=== PATIENT | male | born 1950 | race Caucasian/White ===

== ENCOUNTER 2017-02-05 09:41 | Inpatient (IN) ==
[2017-02-05] MEDS ORDERED: Albuterol 2.5 MG/3 ML NEBULIZER IH ONE (10:13)
[2017-02-05] MEDS ORDERED: Vancomycin 1,250 MG in D5% in Water 250 ML IVPB ONE (10:13)
--- NOTE | 2017-02-05 10:13 | Anesthesia Evaluation PreOp ---
Date of Encounter: 02/05/17 Time of Encounter: 10:11 - Past History Planned Operation: Left Fem-pop Bypass Graft Cardiac History: [place], CHF (11/30), HTN, Hyperlipidemia, Cardiac Surgery, Cardiac Stent, Pacemaker/ICD (AICD 10/05), Other (AAA 2.1 cm 01/24/16, ischemic cardiomyopathy) Pulmonary History: Smoker, Pack/yr (1/2 ppd) POST PARTUM NURSE History: CVA (2003 mental status changes/ short term memorey loss) Other Medical History: GERD Anesthesia History: No Prior Anesthetic Complications, Past Anesthesia Alcohol Use: none Drug use: none Medications and Allergies Albuterol Sulfate [Albuterol Inhaler] 2 puff IH Q4HR 05/15/15 [History] Aspirin Enteric Coated [Aspirin EC] 81 mg PO DAILY 05/15/15 [History] Atorvastatin Calcium [Lipitor] 80 mg PO DAILY 05/15/15 [History] Benzonatate [Tessalon] 100 mg PO Q6H 05/15/15 [History] Budesonide/Formoterol 160/4.5 [Symbicort 160/4.5] 2 puff IH BIDR 05/15/15 [ History] Cholecalciferol (Vitamin D3) [Vitamin D3] 1,000 unit PO DAILY 05/15/15 [History] Clopidogrel [Plavix] 75 mg PO DAILY 05/15/15 [History] Docusate [Colace] 100 mg PO QAM 05/15/15 [History] Gabapentin [Neurontin] 600 mg PO TID 05/15/15 [History] Multivitamin [Multi-Day Vitamins] 1 tab PO QAM 05/15/15 [History] Omeprazole [PriLOSEC] 20 mg PO BID 05/15/15 [History] Potassium Chloride [Klor-Con Sprinkle] 10 meq PO QAM 05/15/15 [History] Venlafaxine HCl [Effexor Xr] 100 mg PO BID 05/15/15 [History] Tiotropium [Spiriva] 1 cap IH DAILY 11/27/15 [History] Carvedilol [Coreg] 6.25 mg PO BID #60 tablet 11/29/15 [Rx] Losartan Potassium [Cozaar] 50 mg PO DAILY #60 tab 11/29/15 [Rx] Finasteride [Proscar] 5 mg PO DAILY 02/05/17 [History] Furosemide [Lasix] 40 mg PO BID 02/05/17 [History] Spironolactone [Aldactone] 25 mg PO DAILY 02/05/17 [History] Tamsulosin [Flomax] 0.4 mg PO HS 02/05/17 [History] traMADol [Ultram] 50 mg PO TID PRN 02/05/17 [History] traZODone [TraZODone] 50 mg PO HS 02/05/17 [History] 3 Allergy/AdvReac Type Severity Reaction Status Date / Time No Known Allergies Allergy Verified 02/05/17 10:34 - Meds/Allergy Pre-op Review Medications Reviewed: Yes Allergies Reviewed: Yes Beta Blockers on Current Med List: Yes If Beta Blockers taken, Date/Time (Last Dose taken): 02/05/2017 06:30 Anesthesia Results - Labs Laboratory Tests 01/12/17 01/12/17 01/12/17 15:06 15:06 15:06 WBC 12.6 H Hgb 14.1 Hct 43.1 Plt Count 127 L INR 1.1 Sodium 141 Potassium 3.8 Chloride 104 Carbon Dioxide 30 H BUN 16 Creatinine 0.80 Stress 07/25/16 EF-21% No evidence of reversible ischemia - Imaging EKG: image reviewed (ELECTRONIC ATRIAL PACEMAKER ELECTRONIC VENTRICULAR PACEMAKER) Anesthesia Exam O2 Sat Height 1.75 m Height 1.75 m Height 1.75 m Weight 86.183 kg Weight 86.183 kg Weight 86.183 kg O2 Sat by Pulse Oximetry 92 Vital Signs Temp Pulse Resp BP Pulse Ox 98.2 F 60 18 102/64 92 02/05/17 10:01 02/05/17 10:01 02/05/17 10:01 02/05/17 10:01 02/05/17 10:01 Height: 5'9'' Weight: 190# NPO (# of Hours): > 8 hrs Pain Scale: 0 Pain Scale Used: Numeric (1 - 10) - HEENT Pupil (Motor): Pupils equal, EOMI Mallampati: III Teeth: Edentulous Oral Opening: Greater than 3 - POST PARTUM NURSE LOC: Oriented POST PARTUM NURSE Motor: Normal RUE, Normal LUE, Normal RLE, Normal LLE, Normal Face POST PARTUM NURSE Sensory: Normal: RUE, LUE, RLE, LLE, Face - Cardiac Rhythm: Regular Murmur: None JVD: No Carotid Bruit: No - Pulmonary Breath Sounds: bilateral Clear Respiratory Effort: Symmetrical Anesthesia Assess/Plan ASA Score: 4 Modified Jose A Scale for Level of Consciousness: Cooperative, oriented, and tranquil Anesthetic Plan: General Autologous Blood: Yes Monitoring Plan: Standard Monitors, A-Line Recovery Plan: PACU
[2017-02-05] MEDS ORDERED: Albuterol 2.5 MG/3 ML NEBULIZER ONE (10:20)
[2017-02-05] MEDS ORDERED: Heparin 1,000 UNITS/500 mL NS 500 ML ONE ×2 (11:20→11:36)
--- NOTE | 2017-02-05 11:28 | History & Physical Report ---
Date of Encounter: 02/05/17 Time of Encounter: 11:20 24 Hour HP Update - Instructions Instructions: If the History and Physical is less than 30 days old and was completed prior to A.M. admission and or procedure and has NOT been updated on calendar day of procedure please complete this update prior to performing procedure. - Update Patient reports changes in Medical Condition: No Changes in examination, assessment, or condition: No Changes in Medication: No Preop tests/diagnostics Reviewed: Yes Surgery Remains Indicated: Yes Consent for Planned Operative Procedure(s) Verified: Yes - Pre-Operative Checklist Preoperative Checklist Indicated: Yes Prophylactic Antibiotic Ordered: Yes (vancomycin due to MRSA risk) Home Medications Include Beta Mari: Yes Beta Mari Taken Today (Day of Surgery): Yes Beta Mari Taken Yesterday (Day Prior to Surgery): Yes Is VTE Prophylaxis Indicated?: Yes
[2017-02-05] MEDS ORDERED: *HR* Midazolam HCl 5 MG/5 ML VIAL IVP ONE (11:29)
[2017-02-05] MEDS ORDERED: *HR* Propofol 200 MG/20 ML VIAL IVP ONE (11:29)
[2017-02-05] MEDS ORDERED: Lidocaine -MPF 2% 2 ML VIAL ONE (11:30)
[2017-02-05] MEDS ORDERED: *HR* Rocuronium Bromide 50 MG/5 ML VIAL ONE (11:32)
[2017-02-05] MEDS ORDERED: Ketamine *HR* 500 MG/10 ML MDV ONE (11:33)
[2017-02-05] MEDS: Ringers Solution, Lactated 1,000 ML IVC SCH ×4 (12:35→15:58)
[2017-02-05] MEDS ORDERED: *HR* Etomidate 40 MG/20 ML VIAL IVP ONE (12:39)
[2017-02-05] MEDS ORDERED: EPHEDrine 50 MG/ML VIAL ONE (12:43)
[2017-02-05] MEDS ORDERED: Ondansetron 4 MG/2 ML VIAL ONE (13:03)
[2017-02-05] MEDS ORDERED: Dexamethasone 4 MG/ML VIAL ONE (13:03)
[2017-02-05] MEDS ORDERED: *HR* Magnesium Sulfate 1 GM/2 ML VIAL ONE (13:05)
[2017-02-05] MEDS ORDERED: *HR* Phenylephrine 10 MG/ML VIAL ONE ×2 (13:56→15:58)
[2017-02-05] MEDS ORDERED: CEFAZOLIN 2000 MG/100 ML IVPB ONE (13:59)
[2017-02-05] MEDS ORDERED: *HR* HYDROmorphone (PF) 1 MG/ML SYRINGE IVP PRN (14:13)
[2017-02-05] MEDS ORDERED: *HR* Promethazine 25 MG/ML VIAL IVP PRN (14:13)
[2017-02-05] MEDS ORDERED: Ketorolac 30 MG/ML VIAL ONE (14:16)
[2017-02-05] MEDS ORDERED: *HR* Heparin 5,000 UNIT/ML VIAL ONE (15:00)
[2017-02-05] MEDS ORDERED: Neostigmine Methylsulfate 3 MG/3 ML SYRINGE ONE (16:15)
--- NOTE | 2017-02-05 17:32 | Anesthesia Evaluation Post Op ---
Date of Encounter: 02/05/17 Time of Encounter: 17:31 - Vital Signs Vital Signs: Vital Signs/O2 Sat, Most Current Temp Pulse Resp BP Pulse Ox 98 F 60 16 92/49 93 02/05/17 17:21 02/05/17 17:21 02/05/17 17:21 02/05/17 17:21 02/05/17 17:21 - Lungs Lungs: Clear Ascult./Percussion - Airway Airway: Non-obstructed - Cardiovascular Regular Rate - Mental Status Mental Status: Alert & Oriented, Answers Appropriately - Pain Pain Scale: 0 Pain Scale used: Numeric (1 - 10) - Nausea Vomiting Nausea Vomiting: Not Present - Hydration Hydration: Ice chips, Myles catheter - Discharge PostOp Status: Transfer Patient to floor
--- NOTE | 2017-02-05 17:36 | Operative Note ---
Date of procedure: 02/05/17 Pre-op diagnosis: Peripheral vascular disease with rest pain Post-op diagnosis: same Procedure: 1. Left external iliac artery 6 x 37mm and 6 x 27mm stent placement. 2. Left common and deep femoral artery endarterectomy. 3. Left femoral to below knee popliteal artery bypass with 6mm Distaflo mini- cuff graft. Complications: None Anesthesia: GETA Surgeon: Damien Martinez Estimated blood loss (cc): 150 Specimen: left femoral plaque Condition: stable Disposition: PACU Procedure in Detail: Indications: The patient is a 66 year old male with hypertension, hyperlipidemia and tobacco abuse who presented to clinic with severe disabling claudication. He was found to have a left iliac artery stenosis and a left superficial femoral and proximal popliteal artery occlusion. Revascularization was recommended for symptomatic relief. Procedure: The patient was identified in the preoperative area. The risks, benefits, and alternatives of the procedure were discussed. All questions were answered. The patient was taken to the operating room and placed in supine position on the operating room table. After the induction of general endotracheal anesthesia, he was cleaned and draped in normal sterile fashion. An oblique incision was made over the left groin sharply. Hemostasis was obtained with electrocautery. Through a process of blunt, sharp, and electrocautery dissection, the left femoral vessels were dissected circumferentially and surrounded with vessel loops. An incision was made on the left medial calf sharply. Hemostasis was obtained with electrocautery. Through a process of blunt, sharp, and electrocautery dissection, the left below -knee popliteal artery was dissected proximally and distally and surrounded with vessel loops. A graft was tunneled between the popliteal and femoral incisions. The patient received 5000 units of heparin intravenously. Additional heparin was given throughout the case to maintain adequate anticoagulation. A pulse could not be palpated in the left common femoral artery. The left common femoral artery was cannulated with a large bore needle. A wire was advanced through the needle into the aorta and the needle was aexchanged for a 6 [place] sheath. An retrograde angiogram revealed an 80% left external iliac artery stenosis. A 6x37mm stent was advanced over the wire and deployed. The balloon was removed and a retrograde angiogram revealed a 70% left external iliac artery stenosis distal to the stent. A 6 x 27mm stent was then advanced over the wire and deployed. The ballon was removed and a completion angiogram revealed no hemodynamically significant residual stenosis. A strong palpable pulse was present in the left common femoral artery. The sheath and wire were removed and the vessel was occluded by apply tension to the vessel loops. The popliteal vessels were occluded and a longitudinal arteriotomy was made in the popliteal artery. The distal end of the graft was sutured in place with a running 6-0 Prolene, but not tied. Heparinized saline was infused into the lumen. Tension was applied to the femoral vessel loops. An arteriotomy was made in the common femoral artery and the graft was cut to fit the defect. The graft was anastamosed with a running 6-0 Prolene. The vessels were flushed through the graft and heparin was infused into the lumen. The graft was clamped with an atraumatic clamp. Thrombin and gelfoam were used at the proximal anastamosis. The distal arterial anastomosis suture line was completed. Prior to completing the closure, the popliteal vessels were flushed and reoccluded. Heparinized saline was infused into the lumen. The anastamosis was tied and then flow was restored. Polyphasic signals were noted distal to the distal anastomosis as well as at the posterior tibial artery. Wounds were irrigated with antibiotic-containing saline. Thrombin and gelfoam were used to aid in hemostasis. Platelet rich and platelet poor plasma were infused into the wounds. Meticulous hemostasis was obtained throughout the wound with electrocautery. Wounds were reapproximated with layers of 2-0 and 3-0 Vicryl. Skin was reapproximated with 3-0 Monocryl. Sterile dressing was applied. The patient was extubated and taken to recovery room in stable condition.
[2017-02-05] MEDS ORDERED: *HR* Morphine 2 MG/ML SYRINGE IVP PRN (17:44)
[2017-02-05] MEDS ORDERED: *HR* OxyCODONE Immed Rel 5 MG TABLET PO PRN (17:44)
[2017-02-05] MEDS ORDERED: *HR* HYDROcodone/Acet 5/325 mg TABLET PO PRN (17:44)
[2017-02-05] MEDS ORDERED: Acetaminophen 325 MG TABLET PO PRN (17:44)
[2017-02-05] MEDS ORDERED: Benzonatate 100 MG CAPSULE PO PRN (17:44)
[2017-02-05] MEDS ORDERED: Naloxone 0.4 MG/ML INJ IVP PRN (17:44)
[2017-02-05] MEDS ORDERED: 0.9 % Sodium Chloride 1,000 ML IVC SCH (17:45)
[2017-02-05] MEDS ORDERED: *HR* Heparin 5,000 UNIT/ML VIAL SQ SCH (18:00)
[2017-02-05 18:25] LABS: Basophils % 0.3 %; Eosinophils % 0.2 %; Hematocrit 38.6 % (37.5-50.1); Hemoglobin 12.5 g/dL (12.9-16.9); Immature Granulocytes % 0.9 % (0-4); Lymphocytes # 0.6 K/mcL (0.6-4.6); Lymphocytes % 4.6 %; Mean Corpuscular HGB Conc 32.4 g/dL (31.6-35.5); Mean Corpuscular Hemoglobin 32.8 pg (28.0-33.3); Mean Corpuscular Volume 101.3 fL (83.0-100.0); Monocytes # 0.4 K/mcL (0.0-1.3); Monocytes % 3.3 %; Neutrophils # 11.6 K/mcL (1.6-8.9); Platelet Count 103 K/mcL (140-400); Red Blood Count 3.81 M/mcL (4.19-5.50); Red Cell Distribution Width 13.3 % (11.5-14.5); Segmented Neutrophils % 90.7 %
[2017-02-05] MEDS: Gabapentin 400 MG CAPSULE PO SCH ×2 (18:26→21:45)
[2017-02-05] MEDS: *HR* Heparin 5,000 UNIT/ML VIAL SQ SCH (19:12)
[2017-02-05] MEDS: ceFAZolin 2,000 MG in D5% in Water 100 ML IVPB SCH (19:14)
[2017-02-05] MEDS: Budesonide/Formoterol 160/4.5 MDI IH SCH (20:04)
[2017-02-05] MEDS ORDERED: traZODone 50 MG TABLET PO SCH (21:00)
[2017-02-05] MEDS: Furosemide 40 MG TABLET PO SCH (21:44)
[2017-02-06] MEDS ORDERED: Vancomycin 1,250 MG in D5% in Water 250 ML IVPB ONE
[2017-02-06] MEDS: ceFAZolin 2,000 MG in D5% in Water 100 ML IVPB SCH (01:31)
[2017-02-06] MEDS: *HR* Heparin 5,000 UNIT/ML VIAL SQ SCH (06:18)
[2017-02-06 06:53] VITALS: BP 90/51
--- NOTE | 2017-02-06 07:05 | Discharge Summary ---
Date of Encounter: 02/06/17 Time of Encounter: 07:50 - Discharge Diagnosis (1) Atherosclerosis of [place] arteries of extremities with intermittent claudication, bilateral legs Priority: Primary Status: Chronic Comments: The patient is postoperative day #1 after a left iliac stent and left femoral to popliteal artery bypass graft placement. He reports that his left leg feels much better. His incisions are healing. He will be discharged today. He has severe peripheral vascular disease in the right lower extremity. He will follow -up in clinic to be scheduled for right lower extremity revascularization. (2) Essential hypertension Priority: Secondary Status: Acute Comments: He was counseled regarding atherosclerotic risk factor reduction. (3) Diabetes Priority: Secondary Status: Acute Qualifiers: Diabetes mellitus type: type 2 Diabetes mellitus complication status: with neurologic complications Diabetes mellitus complication detail: with polyneuropathy Diabetes mellitus correction insulin use: unspecified extermination inspector insulin use status Qualified Code(s): E11.42 - Type 2 diabetes mellitus with diabetic polyneuropathy (4) History of CHF (congestive heart failure) Priority: Secondary Status: Chronic Comments: The patient has a history of diastolic heart failure. He did not experience any episodes of congestive heart failure during this admission. (5) Tobacco abuse Priority: Secondary Status: Chronic Comments: The patient was counseled regarding smoking cessation. (6) CAD (coronary artery disease) Priority: Secondary Status: Chronic Qualifiers: Coronary Disease-Associated Artery/Lesion type: bypass graft [place] vs. transplanted heart: [place] heart Associated angina: without angina Qualified Code(s): I25.810 - Atherosclerosis of coronary artery bypass graft(s) without angina pectoris (7) COPD (chronic obstructive pulmonary disease) Priority: Secondary Status: Chronic Qualifiers: COPD type: COPD with acute exacerbation Qualified Code(s): J44.1 - Chronic obstructive pulmonary disease with (acute) exacerbation (8) Acute blood loss as cause of postoperative anemia Priority: Secondary Status: Acute Comments: The patient has acute expected postoperative blood loss anemia. He is hemodynamically stable without evidence of ongoing blood loss. - Discharge Medications Prescriptions: Oxycodone HCl/Acetaminophen [Percocet 5-325 mg Tablet] 1 each PO Q6H PRN #25 tablet PRN Reason: POSTOPERATIVE PAIN Home Medications: Albuterol Sulfate [Albuterol Inhaler] 2 puff IH Q4HR 05/15/15 [History] Aspirin Enteric Coated [Aspirin EC] 81 mg PO DAILY 05/15/15 [History] Atorvastatin Calcium [Lipitor] 80 mg PO DAILY 05/15/15 [History] Benzonatate [Tessalon] 100 mg PO Q6H PRN 05/15/15 [History] Budesonide/Formoterol 160/4.5 [Symbicort 160/4.5] 2 puff IH BIDR 05/15/15 [ History] Cholecalciferol (Vitamin D3) [Vitamin D3] 1,000 unit PO DAILY 05/15/15 [History] Clopidogrel [Plavix] 75 mg PO DAILY 05/15/15 [History] Docusate [Colace] 100 mg PO QAM 05/15/15 [History] Gabapentin [Neurontin] 1,200 mg PO TID 05/15/15 [History] Multivitamin [Multi-Day Vitamins] 1 tab PO QAM 05/15/15 [History] Omeprazole [PriLOSEC] 20 mg PO BID 05/15/15 [History] Potassium Chloride [Klor-Con Sprinkle] 20 meq PO QAM 05/15/15 [History] Venlafaxine HCl [Effexor Xr] 100 mg PO BID 05/15/15 [History] Tiotropium [Spiriva] 1 cap IH DAILY 11/27/15 [History] Carvedilol [Coreg] 6.25 mg PO BID #60 tablet 11/29/15 [Rx] Losartan Potassium [Cozaar] 50 mg PO DAILY #60 tab 11/29/15 [Rx] Finasteride [Proscar] 5 mg PO DAILY 02/05/17 [History] Furosemide [Lasix] 40 mg PO BID 02/05/17 [History] Spironolactone [Aldactone] 25 mg PO DAILY 02/05/17 [History] Tamsulosin [Flomax] 0.4 mg PO HS 02/05/17 [History] traMADol [Ultram] 50 mg PO TID PRN 02/05/17 [History] traZODone [TraZODone] 50 mg PO HS 02/05/17 [History] Oxycodone HCl/Acetaminophen [Percocet 5-325 mg Tablet] 1 each PO Q6H PRN #25 tablet 02/06/17 [Rx] Allergies/Adverse Reactions: 3 Allergy/AdvReac Type Severity Reaction Status Date / Time No Known Allergies Allergy Verified 02/05/17 10:34 Date of admission: 02/05/17 17:41 Primary care physician: PCP KATYA Procedure(s) Performed: Left iliac stent and left femoral to popliteal artery bypass. Discharging clinician: Damien Martinez Anticipated date of discharge: 02/06/17 - Patient Status Disposition: Home, Self-Care Condition: Good Functional capacity at discharge: uses cane/walker Overall status at discharge: patient is back to baseline - Discharge Instructions Instructions: Oxycodone/Acetaminophen (By mouth) Follow Up With: Damien Martinez MD [Partnered Physician] - 02/23/17 1:00 pm [facility],PCP [Primary Care Provider] - 02/13/17 1:15 pm Additional Instructions: May remove bandage and shower 02/06/17. Wash wound gently and pat to dry. Apply dry gauze to wounds daily for 7 days. No tub baths or swimming until 03/01/17. Call Dr. Martinez at [phone] with questions or concerns. - Diet and Activity Activity: increase activity as tolerated Diet: advance to your usual diet - Hospital Course Hospital course: Mr. Duran is a 66 year old male with multiple medical comorbid conditions who was admitted on 01/27/17. He underwent left iliac artery sten placement and a left femoral to popliteal artery bypass. He tolerated the procedure well. On postoeprative day #1 he was comfortable and his incisions were healing. He had palpable left pedal pulses. He was discharged on postoperative day #1 in stable condition without complications. Time spent discussing smoking cessation with patient: 3 to 10 minutes - Time Spent with Patient Total time spent providing and/or coordinating discharge services: Exam Vital Signs, Last 4 Hours Temp Pulse Resp BP Pulse Ox 02/06/17 06:51 97.7 F 65 19 90/51 96 02/06/17 04:51 16 95 02/06/17 04:35 60 02/06/17 04:05 60 15 91/54 96 General: Present: Conversant, No Apparent Distress HEENT: Present: Atraumatic Neck: Absent: JVD Cardiac: Present: Reg Rate and Rhythm Lungs: Present: Normal Breath Sounds Neuro: Present: Alert and responsive, No focal deficits noted Abdomen: Present: Soft Vascular: Present: Normal capillary refill, Pulse, normal (left pedal pulses are palpable), Surgical incisions (clean, dry and intact without erythema, drainage or hematoma). Absent: Cyanosis, Edema Skin: Present: No rashes noted on visualized skin - VTE Documentation of Mechanical Device: Intermittent pneumatic compression device
[2017-02-06] MEDS: Budesonide/Formoterol 160/4.5 MDI IH SCH (07:46)
[2017-02-06] MEDS: Gabapentin 400 MG CAPSULE PO SCH (07:57)
[2017-02-06] MEDS: Furosemide 40 MG TABLET PO SCH (07:59)
[2017-02-06] MEDS ORDERED: Aspirin Enteric Coated 81 MG Tablet PO SCH (09:00)
[2017-02-06] MEDS ORDERED: Finasteride 5 MG TABLET PO SCH (09:00)
[2017-02-06] MEDS ORDERED: Spironolactone 25 MG TABLET PO SCH (09:00)
[2017-02-06] MEDS ORDERED: Multivit/Ca/Min/Fe/FA 1 TAB TABLET PO SCH (09:00)
[2017-02-06] MEDS ORDERED: Cholecalciferol (D-3) 1,000 UNIT TABLET PO SCH (09:00)
[2017-02-06] MEDS ORDERED: Tiotropium 18 MCG inhalation IH SCH (10:00)
[2017-02-06] MEDS ORDERED: FLUARIX QUAD 2017-18 36MOS UP/PF 0.5 ML SYRINGE IM ONE (10:03)
== END 2017-02-06 14:28 | disposition home or self-care (01) | DRG 253 ==
LOC: SAMDAY 09:41 → 2NNU 17:41
PROVIDERS: ADMIT Surgery; ATTEND Surgery

== ENCOUNTER 2017-03-12 06:19 | Inpatient (IN) ==
[2017-03-12] MEDS ORDERED: Lidocaine -MPF 1% 2 ML VIAL ID ONE (06:34)
[2017-03-12] MEDS ORDERED: CeFAZolin Pre 2,000 MG/100 ML 2,000 MG/100 ML BAG IVPB ONE (06:34)
[2017-03-12] MEDS ORDERED: Vancomycin 1,500 MG in D5% in Water 250 ML IVPB ONE ×3 (06:34→17:00)
[2017-03-12] MEDS ORDERED: Albuterol 2.5 MG/3 ML NEBULIZER IH ONE (06:37)
[2017-03-12] MEDS ORDERED: Albuterol 2.5 MG/3 ML NEBULIZER ONE (06:39)
[2017-03-12] MEDS: Ringers Solution, Lactated 1,000 ML IVC SCH ×2 (06:43→12:49)
--- NOTE | 2017-03-12 06:48 | Anesthesia Evaluation PreOp ---
Date of Encounter: 03/12/17 Time of Encounter: 06:45 - Past History Planned Operation: right iliac stent and fem-pop BPG Cardiac History: CHF (11/30), HTN, Hyperlipidemia, Cardiac Surgery (CABG), Pacemaker/ICD (paced rhythm), Other (PVD, AAA, ischemic cardiomyopathy) Pulmonary History: Smoker, Pack/yr (55), COPD REFERENCE ASSISTANT History: Denies Any Significant HX Other Medical History: GERD Anesthesia History: No Prior Anesthetic Complications, Past Anesthesia (CABG, left leg BPG) Alcohol Use: none Drug use: none Medications and Allergies 3 Allergy/AdvReac Type Severity Reaction Status Date / Time No Known Allergies Allergy Verified 03/12/17 07:03 - Meds/Allergy Pre-op Review Medications Reviewed: Yes Allergies Reviewed: Yes Beta Blockers on Current Med List: Yes If Beta Blockers taken, Date/Time (Last Dose taken): 429 today Anesthesia Results - Imaging EKG: report reviewed (paced rythm) Additional studies: nuc stress test 08/01: non-diagnostic for ischemia, severely dilated LV, severe LV dysfunction with EF 21%extensive NH damage without reversible ischemia Echo 11/30: shows LV global hypokinesis with EF 21%, severly dilated LA, mild MR not pulm HTN Cath:11/30: severe 3 vessel disease with collaterals. The KATZ graft to mid LAD is patent. Anesthesia Exam Weight: 94kg NPO (# of Hours): 8 - HEENT Pupil (Motor): EOMI Mallampati: II Teeth: Edentulous Oral Opening: Greater than 3 - REFERENCE ASSISTANT LOC: Oriented REFERENCE ASSISTANT Motor: Normal RUE, Normal LUE, Normal RLE, Normal LLE, Normal Face REFERENCE ASSISTANT Sensory: Normal: RUE, LUE, RLE, LLE, Face - Cardiac Rhythm: Regular Murmur: None - Pulmonary Breath Sounds: bilateral Rhonchi Respiratory Effort: Symmetrical Anesthesia Assess/Plan ASA Score: 4 Modified [place] Scale for Level of Consciousness: Cooperative, oriented, and tranquil Anesthetic Plan: General Monitoring Plan: Standard Monitors, A-Line Recovery Plan: PACU (discussed risks of GA, need for a-line and possible blood products. Agrees to proceed)
[2017-03-12] MEDS ORDERED: Bupivacaine-MPF 0.25% 10 ML VIAL ONE (07:26)
[2017-03-12] MEDS ORDERED: Heparin 1,000 UNITS/500 mL NS 1,000 ML ONE (07:27)
[2017-03-12] MEDS ORDERED: Lidocaine 1% 20 ML MDV ONE (07:27)
[2017-03-12] MEDS ORDERED: Heparin 1,000 UNITS/500 mL NS 500 ML ONE (07:30)
[2017-03-12] MEDS ORDERED: *HR* Midazolam HCl 2 MG/2 ML VIAL ONE (07:31)
[2017-03-12] MEDS ORDERED: *HR* Propofol 200 MG/20 ML VIAL IVP ONE (07:31)
[2017-03-12] MEDS ORDERED: *HR* FentaNYL (PF) 100 MCG/2 ML VIAL ONE (07:31)
[2017-03-12] MEDS ORDERED: Lidocaine -MPF 2% 2 ML VIAL ONE (07:32)
--- NOTE | 2017-03-12 07:33 | History & Physical Report ---
Date of Encounter: 03/12/17 Time of Encounter: 07:28 24 Hour HP Update - Instructions Instructions: If the History and Physical is less than 30 days old and was completed prior to A.M. admission and or procedure and has NOT been updated on calendar day of procedure please complete this update prior to performing procedure. - Update Patient reports changes in Medical Condition: No Changes in examination, assessment, or condition: No Changes in Medication: No Preop tests/diagnostics Reviewed: Yes Surgery Remains Indicated: Yes Consent for Planned Operative Procedure(s) Verified: Yes - Pre-Operative Checklist Preoperative Checklist Indicated: Yes Prophylactic Antibiotic Ordered: Yes (Vancomycin due to MRSA risk) Home Medications Include Beta Mari: Yes Beta Mari Taken Today (Day of Surgery): Yes Beta Mari Taken Yesterday (Day Prior to Surgery): Yes Is VTE Prophylaxis Indicated?: Yes
[2017-03-12] MEDS ORDERED: *HR* Rocuronium Bromide 50 MG/5 ML VIAL ONE ×2 (07:35→08:56)
[2017-03-12] MEDS ORDERED: *HR* Succinylcholine 200 MG/10 ML VIAL IVP ONE (07:36)
[2017-03-12] MEDS ORDERED: Lidocaine -MPF 4% 5 ML AMPUL ONE (07:37)
[2017-03-12] MEDS ORDERED: Acetaminophen IV 1,000 MG/100 ML INFUS..BTL ONE (07:42)
[2017-03-12] MEDS ORDERED: EPHEDrine 50 MG/ML VIAL ONE ×2 (08:09→08:50)
[2017-03-12] MEDS ORDERED: *HR* HYDROmorphone (PF) 1 MG/ML SYRINGE IVP PRN (08:24)
[2017-03-12] MEDS ORDERED: Ondansetron 4 MG/2 ML VIAL IVP PRN ×2 (08:24→14:51)
--- NOTE | 2017-03-12 08:27 | Anesthesia Procedures ---
Date of Encounter: 03/12/17 Time of Encounter: 08:00 Procedures: Anesthesia - Arterial Line Consent obtained: written consent Time out performed: Yes Sedation: Versed (mg): 2 Sedation: Fentanyl (mcg): 100 Supplemental Oxygen via Nasal Cannula (L/min): 15 (anesthesia circuit) Local Anesthetic: Lidocaine 1% Amount of Anesthetic used (mls): 1 Size (Gauge): 20 Length (inches): 1 3/4 Technique Used: sterile prep, guide wire technique, direct puncture technique Post-Procedure: line taped into place, dry sterile dressing placed Patient tolerated procedure: well, no complications Complications: none Site: Radial R Vitals: see anesthetic record
[2017-03-12] MEDS ORDERED: Ketamine *HR* 500 MG/10 ML MDV ONE (09:00)
[2017-03-12] MEDS ORDERED: *HR* Heparin 5,000 UNIT/ML VIAL ONE ×2 (09:15→10:10)
[2017-03-12] MEDS ORDERED: *HR* Phenylephrine 10 MG/ML VIAL ONE (10:03)
[2017-03-12] MEDS ORDERED: *HR* HYDROmorphone 2 MG/ML SYRINGE ONE (12:09)
[2017-03-12] MEDS ORDERED: Ondansetron 4 MG/2 ML VIAL ONE (12:09)
[2017-03-12] MEDS ORDERED: Neostigmine Methylsulfate 3 MG/3 ML SYRINGE ONE (12:09)
--- NOTE | 2017-03-12 12:13 | Operative Note ---
Date of procedure: 03/12/17 Pre-op diagnosis: Disabling claudication right lower extremity Post-op diagnosis: same Procedure: Right femoral to below-knee popliteal artery bypass graft with 6 mm PTFE Right iliac angiogram Right external iliac artery stent angioplasty 2 Right common femoral artery endarterectomy Complications: None Anesthesia: GETA Surgeon: Damien Martinez Co-Surgeon: Kingsley Perez Estimated blood loss (cc): 100 Specimen: Right common femoral artery plaque Condition: stable Disposition: PACU Procedure in Detail: History Levi Duran is a 66-year-old white male who has known peripheral vascular occlusive disease. He has severe iliac and superficial femoral artery disease. He is status post a left lower extremity intervention. The patient now comes for right lower extremity reconstruction. Procedure After informed consent was obtained the patient was taken to the operating room. General endotracheal anesthesia was established. The right lower extremity was sterilely prepped and draped. A timeout protocol was observed. A 2 team surgical approach was utilized for this procedure due to the patient's existing comorbid medical problems as well as to facilitate the operative surgery and to assist with complex intraoperative decision making. Simultaneous dissections were then made of the right groin area and the right lobe of the knee popliteal area. Dissection in the groin revealed significant inflammatory changes and a number of stainless steel tere including some in the wall of the vessel. Dissection of the below the knee popliteal artery revealed no previous interventions. There was an unexplained edema of the soft tissue particularly in the perivascular space. A subsartorial tunnel was then created. An angiogram was then performed and heparin was administered intravenously. The antrum was performed through a puncture in the right groin and an angiogram demonstrated high-grade lesion of the right external iliac artery. 2 stents were then placed under fluoroscopic control. Completion angiogram demonstrated wide patency and successful stent angioplasty of the right iliac lesion. Attention was then directed back to the bypass graft. Upon opening the common femoral artery there was a large amount of atherosclerotic disease. This required a formal endarterectomy. This was performed of the common femoral artery and the orifice of the profunda femoris. The right superficial femoral artery is chronically occluded and was not endarterectomized. The bypass graft was then performed. A 6 mm PTFE Distaflo graft had been selected. The anastomoses were then performed simultaneously with 6-0 Prolene sutures sewn in an end to side configuration. After appropriate backbleeding and flushing the graft was opened. Pulsatile flow was achieved into the below the knee popliteal and tibial system. A strong Doppler signal was identified over the posterior tibial artery at the ankle. The incisions were then irrigated with antibiotic containing solution and hemostasis was achieved. The wounds were then closed in layers using absorbable suture. Dry sterile dressings were then applied. The patient was taken from the operating room to the recovery room in stable condition. There were no intraoperative complications.
--- NOTE | 2017-03-12 12:27 | Operative Note ---
Date of procedure: 03/12/17 Pre-op diagnosis: Peripheral vascular disease with disabling claudication Post-op diagnosis: same Procedure: 1. Right common and external iliac artery 6 x 57mm. stent 2. Right external iliac artery 6 x 27mm stent. 3. Right iliofemoral and deep femoral endarterectomy. 4. Right common femoral to below knee popliteal artery bypass with 6mm Distaflo Mini-cuff graft. Complications: None Anesthesia: FELIZ Surgeon: Damien Martinez Counterintelligence Specialist: Kingsley Perez Estimated blood loss (cc): 100 Specimen: Right lower extremity plaque Condition: stable Disposition: PACU Procedure in Detail: Indications: The patient is a 66 year old male with a history of coronary artery disease, hyperlipidemia, hypertension and tobacco abuse. He was noted to have severe disabling caludication. Angiography revealed severe iliac artery and femoral artery stenosis as well as a superficial femoral artery occlusion. Revascularization was recommended for relief of his symptoms. Procedure: The patient was identified in the preoperative area. The risks, benefits, and alternatives of the procedure were discussed. All questions were answered. The patient was taken to the operating room and placed in supine position on the operating room table. After the induction of general endotracheal anesthesia, he was cleaned and draped in normal sterile fashion. An oblique incision was made over the right groin sharply. Hemostasis was obtained with electrocautery. Through a process of blunt, sharp, and electrocautery dissection, the right external iliac and femoral vessels were dissected circumferentially and surrounded with vessel loops. The patient was noted to have had a previous surgery on the right femoral vessels. Significant scar as well as multiple surgical clips were present in the wound which required prolonged dissection. The vessels were noted to be firm and heavily calcified. An incision was made on the right medial calf sharply. Hemostasis was obtained with electrocautery. Through a process of blunt, sharp, and electrocautery dissection, the left below-knee popliteal artery was dissected proximally and distally and surrounded with vessel loops. The vessel was noted to be soft. A graft was tunneled between the popliteal and femoral incisions. The patient received 5000 units of heparin intravenously. Additional heparin was given throughout the case to maintain adequate anticoagulation. Tension was applied to the external iliac and femoral vessel loops. A longitudinal arteriotomy was made in the common femoral artery. The lumen was difficult to identify due to the stenotic and calcified plaque. A wire passed into the external iliac artery and a 6 gabonese sheath was advanced over the wire. Using a guiding catheter, a Glidewire was advanced into the aorta. The catheter was advanced into the aorta and the wire was exchanged for a Magic Torque wire. The catheter was removed and a retrograde angiogram was performed to evaluate the iliac arteries and for sizing. The distal common iliac and external iliac arteries were noted to have multiple stenotic segments measuring up to 85%. A 6 x 57mm stent was advanced into the distal common iliac artery and deployed in the common iliac and external iliac artery. The balloon was removed and a retrograde angiogram revealed additional external iliac artery stenosis. A 6 x 27mm stent was then advanced over the wire and deployed in the external iliac artery. The stent was deployed completely above the iliac stent. The balloon was removed and a completion angiogram revealed resolution of the stenosis in the stented arterial segments. Residual stenosis was palpable distal to the stents. Another stent could not be deployed without crossing the inguinal ligament. The sheath was removed along with the wire. The vessel was flushed and improved flow was noted. A dental freer was then used to perform an endarterectomy on the external iliac artery and common femoral artery. The plaque was excised. Antegrade flow was then noted to be strong and pulsatile. Distally, retrograde flow from the deep femoral artery was noted to be slow. The endarterectomy was then extended into the deep femoral artery. The plaque was excised. Retrograde flow was then noted to be brisk. The vessels were flushed with hepairinzed saline. The popliteal vessels were occluded and a longitudinal arteriotomy was made in the popliteal artery. The distal end of the graft was sutured in place with a running 6-0 Prolene, but not tied. Heparinized saline was infused into the lumen. The proximal graft was then cut to fit the arterial defect and was sutured to the common femoral artery with a running 6-0 Prolene. The vessels were flushed through the graft and heparin was infused into the lumen. The graft was clamped with an atraumatic clamp. Thrombin and gelfoam were used at the proximal anastamosis. The distal arterial anastomosis suture line was completed. Prior to completing the closure, the popliteal vessels were flushed and reoccluded. Heparinized saline was infused into the lumen. The anastamosis was tied and then flow was restored. Polyphasic signals were noted distal to the distal anastomosis as well as at the posterior tibial artery. Wounds were irrigated with antibiotic-containing saline. Thrombin and gelfoam were used to aid in hemostasis. Platelet rich and platelet poor plasma were infused into the wounds. Meticulous hemostasis was obtained throughout the wound with electrocautery. Wounds were reapproximated with layers of 2-0 and 3-0 Vicryl. Skin was reapproximated with 3-0 Monocryl. Sterile dressing was applied. The patient was extubated and taken to recovery room in stable condition.
--- NOTE | 2017-03-12 14:25 | Anesthesia Evaluation Post Op ---
Date of Encounter: 03/12/17 Time of Encounter: 14:25 - Vital Signs Vital Signs: Vital Signs/O2 Sat/Glucose, Most Recent Temp Pulse Resp BP Pulse Ox 98.0 F 60 17 109/54 100 03/12/17 14:15 03/12/17 14:15 03/12/17 14:15 03/12/17 14:15 03/12/17 14:15 - Lungs Lungs: Clear Ascult./Percussion - Airway Airway: Non-obstructed - Cardiovascular Regular Rate - Mental Status Mental Status: Alert & Oriented, Answers Appropriately - Pain Pain Scale: 2 Pain Scale used: Numeric (1 - 10) - Nausea Vomiting Nausea Vomiting: Not Present - Hydration Hydration: Tolerates oral liquids - Discharge PostOp Status: Transfer Patient to floor
[2017-03-12] MEDS ORDERED: *HR* Labetalol 20 MG/4 ML SYRINGE IVP PRN (14:51)
[2017-03-12] MEDS ORDERED: Acetaminophen 325 MG TABLET PO PRN (14:51)
[2017-03-12] MEDS ORDERED: *HR* HYDROcodone/Acet 5/325 mg TABLET PO PRN (14:51)
[2017-03-12] MEDS ORDERED: *HR* Morphine 2 MG/ML SYRINGE IVP PRN (14:51)
[2017-03-12] MEDS ORDERED: Naloxone 0.4 MG/ML INJ IVP PRN (14:51)
[2017-03-12] MEDS: ceFAZolin 2,000 MG in D5% in Water 100 ML IVPB SCH (16:31)
[2017-03-12] MEDS ORDERED: *HR* Heparin 5,000 UNIT/ML VIAL SQ SCH (18:00)
[2017-03-12] MEDS: *HR* Metoprolol 5 MG/5 ML VIAL IVP SCH (18:08)
[2017-03-12] MEDS ORDERED: Vancomycin 0 MG in D5% in Water 250 ML IVPB ONE (19:00)
[2017-03-12] MEDS: Budesonide/Formoterol 160/4.5 MDI IH SCH (19:20)
[2017-03-12] MEDS: *HR* OxyCODONE Immed Rel 5 MG TABLET PO PRN (20:24)
[2017-03-12] MEDS ORDERED: Triamcinolone Acet 0.1% CRM 1 APPL GRAM TP SCH (21:00)
[2017-03-12] MEDS: Furosemide 40 MG TABLET PO SCH (21:26)
[2017-03-12] MEDS: Triamcinolone Acet 0.1% CRM 15 GM TUBE TP SCH (21:27)
[2017-03-13] MEDS: *HR* Metoprolol 5 MG/5 ML VIAL IVP SCH ×2 (00:28→05:34)
[2017-03-13] MEDS: ceFAZolin 2,000 MG in D5% in Water 100 ML IVPB SCH (00:28)
[2017-03-13] MEDS: *HR* OxyCODONE Immed Rel 5 MG TABLET PO PRN ×2 (00:28→05:34)
[2017-03-13] MEDS ORDERED: *HR* Heparin 5,000 UNIT/ML VIAL SQ SCH (06:00)
[2017-03-13 06:07] LABS: Basophils % 0.2 %; Eosinophils # 0.2 K/mcL (0.0-0.6); Eosinophils % 1.9 %; Hematocrit 34.6 % (37.5-50.1); Immature Granulocytes % 0.6 % (0-4); Lymphocytes % 8.3 %; Mean Corpuscular HGB Conc 32.4 g/dL (31.6-35.5); Mean Corpuscular Hemoglobin 33.4 pg (28.0-33.3); Mean Corpuscular Volume 103.3 fL (83.0-100.0); Monocytes # 1.2 K/mcL (0.0-1.3); Monocytes % 9.7 %; Neutrophils # 9.8 K/mcL (1.6-8.9); Platelet Count 120 K/mcL (140-400); Red Blood Count 3.35 M/mcL (4.19-5.50); Red Cell Distribution Width 13.6 % (11.5-14.5); Segmented Neutrophils % 79.3 %
[2017-03-13 06:11] LABS: Hemoglobin 11.2 g/dL (12.9-16.9)
[2017-03-13 06:20] LABS: BUN/Creatinine Ratio 14 (6-26); Blood Urea Nitrogen 10 mg/dL (8-26); Calcium 8.5 mg/dL (8.6-10.8); Carbon Dioxide 30 mEq/L (19-29); Chloride 104 mEq/L (98-109); Glucose 110 mg/dL (70-99); Osmolality,Calculated 288 (280-300); Potassium 3.8 mEq/L (3.5-4.5); Sodium 139 mEq/L (136-145); eGFR For African Americans > 60 (> 60); eGFR For Non-African Americans > 60 (> 60)
--- NOTE | 2017-03-13 06:59 | Discharge Summary ---
Date of Encounter: 03/13/17 Time of Encounter: 08:45 - Discharge Diagnosis (1) Atherosclerosis of [place] arteries of extremities with intermittent claudication, bilateral legs Priority: Primary Status: Chronic Comments: The patient is postoperative day #1 after right iliac artery stents, right femoral endarterectomy and right femoral to popliteal artery bypass. He is hemodynamically stable. His foot is warm with palpable pulses. He is ambulating. He will be discharged today. (2) Diabetes Priority: Secondary Status: Chronic Qualifiers: Diabetes mellitus type: type 2 Diabetes mellitus complication status: with neurologic complications Diabetes mellitus complication detail: with polyneuropathy Diabetes mellitus shelter insulin use: unspecified shelter insulin use status Qualified Code(s): E11.42 - Type 2 diabetes mellitus with diabetic polyneuropathy (3) History of CHF (congestive heart failure) Priority: Secondary Status: Chronic Comments: The patient did not experience any acute symptoms of his chronic diastolic heart failure. (4) CAD (coronary artery disease) Priority: Secondary Status: Chronic Qualifiers: Coronary Disease-Associated Artery/Lesion type: bypass graft [place] vs. transplanted heart: [place] heart Associated angina: without angina Qualified Code(s): I25.810 - Atherosclerosis of coronary artery bypass graft(s) without angina pectoris (5) Acute blood loss as cause of postoperative anemia Priority: Secondary Status: Acute Comments: The patient has acute expected postoperative blood loss anemia. He is hemodynamically stable without evidence of ongoing blood loss. (6) COPD (chronic obstructive pulmonary disease) Priority: Secondary Status: Chronic Qualifiers: COPD type: emphysema Emphysema type: panlobular Qualified Code(s): J43.1 - Panlobular emphysema - Discharge Medications Prescriptions: Oxycodone HCl/Acetaminophen [Percocet 5-325 mg Tablet] 1 each PO Q6H PRN #25 tablet PRN Reason: POSTOPERATIVE PAIN Home Medications: Albuterol Sulfate [Albuterol Inhaler] 2 puff IH Q4HR 05/15/15 [History] Aspirin Enteric Coated [Aspirin EC] 81 mg PO DAILY 05/15/15 [History] Atorvastatin Calcium [Lipitor] 80 mg PO DAILY 05/15/15 [History] Benzonatate [Tessalon] 100 mg PO Q6H PRN 05/15/15 [History] Budesonide/Formoterol 160/4.5 [Symbicort 160/4.5] 2 puff IH BIDR 05/15/15 [ History] Cholecalciferol (Vitamin D3) [Vitamin D3] 1,000 unit PO DAILY 05/15/15 [History] Clopidogrel [Plavix] 75 mg PO DAILY 05/15/15 [History] Docusate [Colace] 100 mg PO QAM 05/15/15 [History] Gabapentin [Neurontin] 1,200 mg PO TID 05/15/15 [History] Multivitamin [Multi-Day Vitamins] 1 tab PO QAM 05/15/15 [History] Omeprazole [PriLOSEC] 20 mg PO BID 05/15/15 [History] Potassium Chloride [Klor-Con Sprinkle] 20 meq PO QAM 05/15/15 [History] Venlafaxine HCl [Effexor Xr] 100 mg PO BID 05/15/15 [History] Tiotropium [Spiriva] 1 cap IH DAILY 11/27/15 [History] Carvedilol [Coreg] 6.25 mg PO BID #60 tablet 11/29/15 [Rx] Losartan Potassium [Cozaar] 50 mg PO DAILY #60 tab 11/29/15 [Rx] Finasteride [Proscar] 5 mg PO DAILY 02/05/17 [History] Furosemide [Lasix] 40 mg PO BID 02/05/17 [History] Spironolactone [Aldactone] 25 mg PO DAILY 02/05/17 [History] Tamsulosin [Flomax] 0.4 mg PO HS 02/05/17 [History] traMADol [Ultram] 50 mg PO TID PRN 02/05/17 [History] traZODone [TraZODone] 50 mg PO HS 02/05/17 [History] Albuterol Sulfate [Albuterol Inhaler] 2 puff IH Q4HR PRN 03/12/17 [History] Aspirin 81 mg PO DAILY 03/12/17 [History] Atorvastatin Calcium 80 mg PO DAILY 03/12/17 [History] Budesonide/Formoterol 160/4.5 [Symbicort 160/4.5] 2 puff IH BIDR 03/12/17 [ History] Carvedilol [Coreg] 6.25 mg PO BIDWM 03/12/17 [History] Clopidogrel [Plavix] 75 mg PO DAILY 03/12/17 [History] Finasteride [Proscar] 5 mg PO DAILY 03/12/17 [History] Furosemide [Lasix] 40 mg PO BID 03/12/17 [History] Oxygen 3 l NS CONT 03/12/17 [History] Potassium Chloride [K-Tab ER] 20 meq PO DAILY 03/12/17 [History] Spironolactone [Aldactone] 25 mg PO DAILY 03/12/17 [History] Tamsulosin [Flomax] 0.4 mg PO HS 03/12/17 [History] Tiotropium [Spiriva] 1 puff IH DAILY 03/12/17 [History] Triamcinolone Acet 0.1% CRM [Kenalog] 1 appl TP BID 03/12/17 [History] Venlafaxine HCl 100 mg PO BID 03/12/17 [History] Oxycodone HCl/Acetaminophen [Percocet 5-325 mg Tablet] 1 each PO Q6H PRN #25 tablet 03/13/17 [Rx] Allergies/Adverse Reactions: 3 Allergy/AdvReac Type Severity Reaction Status Date / Time No Known Allergies Allergy Verified 02/05/17 10:34 Date of admission: 03/12/17 14:35 Primary care physician: PCP [place] Procedure(s) Performed: Right iliac stent, right femoral endarterectomy, right femoral to popliteal artery bypass. Discharging clinician: Damien Martinez Anticipated date of discharge: 03/13/17 - Patient Status Disposition: Home, Self-Care Condition: Good Functional capacity at discharge: independent ambulation Overall status at discharge: patient is back to baseline - Discharge Instructions Instructions: Oxycodone/Acetaminophen (By mouth), Femoropopliteal Bypass (DC), Surgical Site Infections (GEN) Follow Up With: Damien Martinez MD [Partnered Physician] - 04/27/17 8:30 am [place],PCP [Primary Care Provider] - 03/19/17 9:15 am (send d/c info to [place] [phone]) Additional Instructions: May remove bandage and shower 03/14/17. Wash wound gently and pat to dry. Apply dry gauze to wounds daily for 7 days. No tub baths or swimming until 04/06/17. Call Dr. Martinez at [phone] with questions or concerns. - Diet and Activity Activity: increase activity as tolerated Diet: advance to your usual diet - Hospital Course Hospital course: Mr. Duran is a 66 year old male with a history of peripheral vascular disease with disabling claudication. He was admitted on 03/12/17 for revascualrization. He underwent right iliac stents, right femoral endarterectomy and a right femoral to popliteal artery bypass. On postoperative day #1 he was alert and comfortable without complaints. He was able to ambulate and he had palpable pedal pulses. He was discharged in stable condition without complications. Time spent discussing smoking cessation with patient: 3 to 10 minutes - Time Spent with Patient Total time spent providing and/or coordinating discharge services: Exam Vital Signs, Last 4 Hours Temp Pulse Resp BP Pulse Ox 03/13/17 03:50 98.3 F 60 18 107/52 95 General: Present: Conversant, No Apparent Distress HEENT: Present: Pupils equal Neck: Absent: JVD Cardiac: Present: Reg Rate and Rhythm Lungs: Present: Normal Breath Sounds, No Wheeze, Rales, Rhonchi Neuro: Present: Alert and responsive, No focal deficits noted, Motor nerves grossly intact, Sensory nerves grossly intact Abdomen: Present: Soft Vascular: Present: Normal capillary refill, Pulse, normal, Surgical incisions ( incisions clean and dry without drainage, comartments are soft). Absent: Edema Skin: Present: No rashes noted on visualized skin - VTE Documentation of Mechanical Device: Intermittent pneumatic compression device
[2017-03-13 07:59] VITALS: BP 103/56
[2017-03-13] MEDS: Furosemide 40 MG TABLET PO SCH (07:59)
[2017-03-13] MEDS: Triamcinolone Acet 0.1% CRM 15 GM TUBE TP SCH (08:00)
[2017-03-13] MEDS ORDERED: Spironolactone 25 MG TABLET PO SCH (09:00)
[2017-03-13] MEDS ORDERED: Finasteride 5 MG TABLET PO SCH (09:00)
[2017-03-13] MEDS ORDERED: Aspirin 81 MG TAB.CHEW PO SCH (09:00)
[2017-03-13] MEDS ORDERED: Tiotropium 18 MCG inhalation IH SCH (09:00)
[2017-03-13] MEDS: Budesonide/Formoterol 160/4.5 MDI IH SCH (11:13)
== END 2017-03-13 11:18 | disposition home or self-care (01) | DRG 253 ==
LOC: SAMDAY 06:19 → MERGE 06:19 → 2NNU 14:35
PROVIDERS: ADMIT Surgery; ATTEND Surgery

== ENCOUNTER 2017-08-30 19:56 | Inpatient (IN) ==
[2017-08-31] MEDS ORDERED: Acetaminophen 325 MG TABLET PO PRN (02:12)
[2017-08-31] MEDS ORDERED: Naloxone 0.4 MG/ML INJ IVP PRN (02:12)
[2017-08-31] MEDS ORDERED: Ipratropium/Albuterol Neb 3 ML ONE (02:17)
[2017-08-31] MEDS ORDERED: Ipratropium/Albuterol Neb 3 ML IH PRN (02:18)
--- NOTE | 2017-08-31 02:44 | Internal Med History&Physical ---
Date of Encounter: 08/31/17 Time of Encounter: 01:00 Internal Medicine - H&P: HPI Chief complaint: Shortness of breath and chest pain Admitted From: Intrahospital Transfer Plans for Post Hospital Care: Home History of present illness: Mr. Duran is a 67 year old male transferred from [facility] emergency room for shortness of breath and chest pain. Past medical history is significant for systolic CHF with LVEF 20% S/P PPM/AICD, CAD, COPD Patient has intermittent chest pain and shortness of breath and present to [facility] ER for evaluation. Patient was treated there as COPD exacerbation with Levaquin, steroid, and nebulizer. Patient was found elevated troponin to 0.42, which elevated to 0.45 after 2 hours. Patient was considered NSTEMI and was given Lovenox full dose at around 5 pm. Patient also was found elevated d-dimer , CTA was ordered by [facility] ER, however, results shows contrast infiltrate in arm, nondiagnosis for PE. Pt was request to transfer to our hospital for further management. I have discussed the CODE STATUS with this patient. Patient is AAO 3. Patient clearly told me he does not want CPR if cardiac arrest happens, but accept short period of intubation. DNR CCA place. Past Med Surg Social Fam HX - Past Medical History Medical history: GERD, hyperlipidemia, hypertension, CVA, coronary artery disease, CHF, COPD Psychiatric history: no psych history - Past Surgical History Surgical History: coronary bypass (CABG), pacemaker/AICD - Social History Smoking Status: Current every day smoker Packs per day: 1/2 ppd Smokeless Tobacco Status: No Alcohol use: none Drug use: none - Family History Mother History Unknown: Yes Father History Unknown: Yes Hx Family Cardiac Disorders: Yes Internal Medicine - H&P: Meds Albuterol Sulfate [Albuterol Inhaler] 2 puff IH Q4HR 05/15/15 [History] Aspirin Enteric Coated [Aspirin EC] 81 mg PO DAILY 05/15/15 [History] Atorvastatin Calcium [Lipitor] 80 mg PO DAILY 05/15/15 [History] Benzonatate [Tessalon] 100 mg PO Q6H PRN 05/15/15 [History] Budesonide/Formoterol 160/4.5 [Symbicort 160/4.5] 2 puff IH BIDR 05/15/15 [ History] Cholecalciferol (Vitamin D3) [Vitamin D3] 1,000 unit PO DAILY 05/15/15 [History] Clopidogrel [Plavix] 75 mg PO DAILY 05/15/15 [History] Docusate [Colace] 100 mg PO QAM 05/15/15 [History] Gabapentin [Neurontin] 1,200 mg PO TID 05/15/15 [History] Multivitamin [Multi-Day Vitamins] 1 tab PO QAM 05/15/15 [History] Omeprazole [PriLOSEC] 20 mg PO BID 05/15/15 [History] Potassium Chloride [Klor-Con Sprinkle] 20 meq PO QAM 05/15/15 [History] Venlafaxine HCl [Effexor Xr] 100 mg PO BID 05/15/15 [History] Tiotropium [Spiriva] 1 cap IH DAILY 11/27/15 [History] Carvedilol [Coreg] 6.25 mg PO BID #60 tablet 11/29/15 [Rx] Losartan Potassium [Cozaar] 50 mg PO DAILY #60 tab 11/29/15 [Rx] Finasteride [Proscar] 5 mg PO DAILY 02/05/17 [History] Furosemide [Lasix] 40 mg PO BID 02/05/17 [History] Spironolactone [Aldactone] 25 mg PO DAILY 02/05/17 [History] Tamsulosin [Flomax] 0.4 mg PO HS 02/05/17 [History] traMADol [Ultram] 50 mg PO TID PRN 02/05/17 [History] traZODone [TraZODone] 50 mg PO HS 02/05/17 [History] Albuterol Sulfate [Albuterol Inhaler] 2 puff IH Q4HR PRN 03/12/17 [History] Aspirin 81 mg PO DAILY 03/12/17 [History] Atorvastatin Calcium 80 mg PO DAILY 03/12/17 [History] Budesonide/Formoterol 160/4.5 [Symbicort 160/4.5] 2 puff IH BIDR 03/12/17 [ History] Carvedilol [Coreg] 6.25 mg PO BIDWM 03/12/17 [History] Clopidogrel [Plavix] 75 mg PO DAILY 03/12/17 [History] Finasteride [Proscar] 5 mg PO DAILY 03/12/17 [History] Furosemide [Lasix] 40 mg PO BID 03/12/17 [History] Oxygen 3 l NS CONT 03/12/17 [History] Potassium Chloride [K-Tab ER] 20 meq PO DAILY 03/12/17 [History] Spironolactone [Aldactone] 25 mg PO DAILY 03/12/17 [History] Tamsulosin [Flomax] 0.4 mg PO HS 03/12/17 [History] Tiotropium [Spiriva] 1 puff IH DAILY 03/12/17 [History] Triamcinolone Acet 0.1% CRM [Kenalog] 1 appl TP BID 03/12/17 [History] Venlafaxine HCl 100 mg PO BID 03/12/17 [History] Oxycodone HCl/Acetaminophen [Percocet 5-325 mg Tablet] 1 each PO Q6H PRN #25 tablet 03/13/17 [Rx] 3 Allergy/AdvReac Type Severity Reaction Status Date / Time No Known Allergies Allergy Verified 02/05/17 10:34 All Systems PM: A 10-system review of systems was performed and is negative for pertinent findings except as documented above in the HPI. - Constitutional Vitals: Temp Pulse Resp BP Pulse Ox 98.2 F 75 18 99/61 99 08/31/17 00:31 08/31/17 00:31 08/31/17 02:20 08/31/17 00:31 08/31/17 02:20 General appearance: Present: A&O X 3, no acute distress, answers questions appropriately - Head Head exam: Present: atraumatic, normocephalic - Eye Eye exam: Present: PERRL, conjuntiva pink, sclera anicteric Pupils: Present: PERRL - Neck Neck exam general surgery: Present: supple, trachea midline. Absent: lymphadenopathy - Respiratory Respiratory exam: Present: CTAB, wheezes (Diffuse wheezes bilaterally). Absent : accessory muscle use, rales, rhonchi - Cardiovascular Cardiovascular exam: Present: RRR, +S1, +S2. Absent: diastolic murmur, gallop, rubs, systolic murmur - GI/Abdominal GI/Abdominal exam: Present: normal bowel sounds, soft, no peritoneal signs. Absent: distended, tenderness - Extremities Exam Extremities exam: Present: pedal edema (Mild pedal edema bilaterally), warm, radial pulses palpable and symmetrical. Absent: calf tenderness, cyanotic - Neurological Exam Neurological exam: Present: CN II-XII intact, oriented X3, no focal deficits. Absent: pronater drift, facial droop, speech deficit - Skin Skin exam: Present: dry, intact Internal Med - H&P Results - EKG Data -: EKG Interpreted by Myself (Paced rhythm) - Assessment and plan (1) COPD exacerbation Current Visit: Yes Status: Acute Assessment and plan: Patient has a history of COPD. Has increased the shortness of breath. Bilateral diffuse wheezing. Chest x-ray shows negative for pneumonia. Consider COPD exacerbation. - Place patient on antibiotic, steroid, and bronchidilator - Oxygen supportive treatment (2) Elevated d-dimer Current Visit: Yes Status: Acute Assessment and plan: Patient has elevated d-dimer, CTA has been done in [facility], however, because of infiltration of contrast, the result is nondiagnostic. - We will consider VQ scan in a.m. Patient is already in full anticoagulation - Doppler LE b/l (3) CHF exacerbation Current Visit: No Status: Acute Assessment and plan: Patient has increased shortness of breath, history of severe systolic CHF with LVEF 15-20%. Consider CHF exacerbation as well. - Place patient on IV Lasix 40 mg IV twice a day - Strict I and O - Fluid restriction diet after resume diet. - Continue home medication beta shala, ARB, spironolactone - Patient has been placed PPM and AICD Qualifiers: Heart failure type: systolic Qualified Code(s): I50.23 - Acute on chronic systolic (congestive) heart failure (4) Elevated troponin Current Visit: No Status: Resolved Assessment and plan: Consider NSTEMI. Ethel given full dose Lovenox. Will switch to heparin drip started from 5 AM (12 hour after lovenox). Patient is pain-free now - Continuous cardiac monitoring - Track tow more sets of troponin - Cardiology consult. (5) CAD (coronary artery disease) Current Visit: No Status: Chronic Assessment and plan: Continue home medications. Check troponin as mentioned above. Cardiology consult Qualifiers: Coronary Disease-Associated Artery/Lesion type: bypass graft [place] vs. transplanted heart: [place] heart Associated angina: without angina Qualified Code(s): I25.810 - Atherosclerosis of coronary artery bypass graft(s) without angina pectoris (6) DVT prophylaxis Current Visit: Yes Status: Acute Assessment and plan: Patient was given Lovenox - Time Spent With Patient Total time spent is greater than 50% in coordination of care (as documented) at patient's floor/unit and/or counseling patient:
[2017-08-31] MEDS: Furosemide 40 MG/4 ML VIAL IVP SCH ×3 (03:01→16:42)
[2017-08-31 03:26] LABS: Basophils % 0.2 %; Eosinophils # 0.1 K/mcL (0.0-0.6); Eosinophils % 0.6 %; Hematocrit 36.2 % (37.5-50.1); Hemoglobin 12.1 g/dL (12.9-16.9); Immature Granulocytes % 1.2 % (0-4); Immature Platelets 5.9 % (1.1-6.1); Mean Corpuscular HGB Conc 33.4 g/dL (31.6-35.5); Mean Corpuscular Hemoglobin 34.1 pg (28.0-33.3); Mean Platelet Volume 11.7 fL (9.4-12.4); Monocytes # 1.3 K/mcL (0.0-1.3); Monocytes % 9.3 %; Neutrophils # 11.2 K/mcL (1.6-8.9); Nucleated Red Blood Cells 0.4 /100 WBC (0); Platelet Count 133 K/mcL (140-400); Red Blood Count 3.55 M/mcL (4.19-5.50); Red Cell Distribution Width 13.2 % (11.5-14.5); Segmented Neutrophils % 81.7 %
[2017-08-31] MEDS: Ipratropium/Albuterol Neb 3 ML IH SCH ×6 (03:29→23:50)
[2017-08-31] MEDS ORDERED: Melatonin 3 MG TABLET PO ONE (03:35)
[2017-08-31 03:37] LABS: INR 1.3; Prothrombin Time 14.5 Seconds (9.4-12.1)
[2017-08-31 03:39] LABS: Activated Partial Thrombo Time 29.7 Seconds (26.0-36.0)
[2017-08-31 03:44] LABS: BUN/Creatinine Ratio 23 (6-26); Blood Urea Nitrogen 14 mg/dL (8-23); Carbon Dioxide 32 mEq/L (23-29); Chloride 99 mEq/L (98-107); Glucose 92 mg/dL (70-105); Magnesium 1.6 mg/dL (1.6-2.6); Osmolality,Calculated 284 (280-300); Potassium 3.3 mEq/L (3.5-5.1); Sodium 137 mEq/L (136-145); eGFR For African Americans > 60 (> 60); eGFR For Non-African Americans > 60 (> 60)
[2017-08-31] MEDS ORDERED: *HR* Heparin 5,000 UNIT/ML VIAL IVP PRN ×2 (05:00)
[2017-08-31] MEDS ORDERED: *HR* Heparin 5,000 UNIT/ML VIAL IVP ONE (05:00)
[2017-08-31] MEDS: Heparin 25,000 UNIT/500 ML D5W 25,000 UNIT/500 ML BAG IVC SCH (05:05)
[2017-08-31] MEDS: Budesonide/Formoterol 160/4.5 MDI IH SCH ×2 (07:56→19:49)
[2017-08-31] MEDS ORDERED: Spironolactone 25 MG TABLET PO SCH (09:00)
[2017-08-31] MEDS ORDERED: Finasteride 5 MG TABLET PO SCH (09:00)
[2017-08-31] MEDS ORDERED: Aspirin 81 MG TAB.CHEW PO SCH (09:00)
[2017-08-31] MEDS: Aspirin Enteric Coated 81 MG Tablet PO SCH (09:35)
[2017-08-31] MEDS: methylPREDNISolone 125 MG/2 ML VIAL IVP SCH ×2 (09:35→16:42)
--- NOTE | 2017-08-31 09:53 | Internal Med Progress Note ---
<Wilfredo Rock - Last Filed: 08/31/17 17:27> Date of Encounter: 08/31/17 Time of Encounter: 09:50 - Assessment and plan (1) COPD exacerbation Current Visit: Yes Status: Acute Assessment and plan: Patient has a history of COPD. Denies any acute infectious symptoms like fevers , myalgias, productive cough. Has increased the shortness of breath. - Patient does have moderate leukocytosis and patchy left lower lobe infiltrate suggestive of lobar pneumonia - continue Levaquin (day 1) - continue scheduled duo nebs, Symbicort, Solu-Medrol (currently 60 mg Q8 hours IVP) - Oxygen supportive treatment - repeat ABG this a.m. not significantly changed showing no acute respiratory decompensation as compared to ABG done at [facility] - will add BiPAP if needed (2) CHF exacerbation Current Visit: No Status: Acute Assessment and plan: Patient describes to me recent history of symptoms consistent with CHF exacerbation including shortness of air, worsening orthopnea, and worsening pedal edema. Last echo done in 2015 showed LVEF of 20%, left ventricular diastolic dysfunction, and global hypotension easier. and. On initial workup, patient did have elevated troponins which have since downtrended, as well as an elevated BNP. - Place patient on IV Lasix 40 mg IV twice a day - Strict I and O - Fluid restriction diet after resume diet. - Continue home medication beta shala, ARB, spironolactone - Patient has been placed PPM and AICD - Cardiology has been consulted and we are awaiting recommendations. Qualifiers: Heart failure type: systolic Qualified Code(s): I50.23 - Acute on chronic systolic (congestive) heart failure (3) Elevated troponin Current Visit: No Status: Resolved Assessment and plan: Consider NSTEMI. Ethel given full dose Lovenox. Will switch to heparin drip started from 5 AM (12 hour after lovenox). Patient is pain-free now - Continuous cardiac monitoring - troponins decreasing on serial rejects - Cardiology consult. - Currently on heparin GTT, however, this is most likely direct sales representative of acute demand ischemia picture (4) CAD (coronary artery disease) Current Visit: No Status: Chronic Assessment and plan: Continue home medications. Check troponin as mentioned above. Cardiology consult Qualifiers: Coronary Disease-Associated Artery/Lesion type: bypass graft [place] vs. transplanted heart: [place] heart Associated angina: without angina Qualified Code(s): I25.810 - Atherosclerosis of coronary artery bypass graft(s) without angina pectoris (5) Elevated d-dimer Current Visit: Yes Status: Acute Assessment and plan: Patient has elevated d-dimer, CTA has been attempted in [place], however, because of infiltration of contrast, the result is nondiagnostic. - VQ scan unable to be performed to patient's inability to lay fully supine - Doppler LE b/l and echocardiogram pending; may give us stratify risk of PE as well as any heart motion abnormalies consistent with (sub)massive PE (6) DVT prophylaxis Current Visit: Yes Status: Acute Assessment and plan: Currently on heparin infusion; change to subcutaneous heparin once discontinued. (7) Acute and chronic respiratory failure ([id number]) Current Visit: Yes Status: Acute Assessment and plan: Suspect likely multifactorial due to acute COPD exacerbation, pneumonia, and acute CHF exacerbation. All plans as below. Qualifiers: Respiratory failure complication: unspecified whether with hypoxia or hypercapnia Qualified Code(s): J96.20 - Acute and chronic respiratory failure , unspecified whether with hypoxia or hypercapnia - Time Spent With Patient Total time spent is greater than 50% in coordination of care (as documented) at patient's floor/unit and/or counseling patient: - Subjective Interval history: Reviewed recent history with patient. Patient states he just cannot breathe as well as normal, comments on pedal edema, and states is having a harder time sleeping while lying down. Patient denies any fevers, chills, myalgias, worsening cough, production of sputum, chest pain, palpitations, abdominal pain , nausea, vomiting, or dysuria. BPs are within normal limits but borderline this AM. Held Cozaar this a.m. Patient was also tachypneic but will speak in full sentences. Acquiring new ABG. No other acute concerns per RN. - Constitutional Vitals: Temp Pulse Resp BP Pulse Ox 98.2 F 64 16 101/49 95 08/31/17 07:13 08/31/17 07:13 08/31/17 07:53 08/31/17 07:13 08/31/17 07:53 General appearance: Present: A&O X 3, no acute distress, answers questions appropriately Exam: CONSTITUTIONAL: Alert and oriented x2 (unable to name current month -- does state has worsening memory on chronic basis) HEAD: Normocephalic; atraumatic. EYES: PER, no scleral icterus, no drainage, no conjunctival injection NOSE: nasal cannula in place Oropharynx: pink/moist, no tonsillar edema/erythema/exudates RESP: tachypneic but without use of accessory musculature, CTA b/l with no wheezes/rales/rhonchi CARD: Regular rhythm, without murmurs, rubs, or gallop ABD: grossly normal, soft, non-tender, no guarding/distention/rigidity SKIN: normal appearance, no pallor/diaphoresis,mottling,jaundice,cyanosis EXT: Rad pulses 2+ and symmetrical; no lateralizing edema; no other lesions seen PSYCH: appropriate mood/affect Internal Medicine: Result - Labs CBC & Chem 7: 08/31/17 03:08 08/31/17 03:08 Labs: Short CBC 08/31/17 Range/Units 03:08 WBC 13.7 H (4.3-11.1) K/mcL Hgb 12.1 L (12.9-16.9) g/dL Hct 36.2 L (37.5-50.1) % Plt Count 133 L (140-400) K/mcL Neutrophils # 11.2 H (1.6-8.9) K/mcL BMP 08/31/17 03:08 Sodium 137 Potassium 3.3 L Chloride 99 Carbon Dioxide 32 H BUN 14 Creatinine 0.60 L Glucose 92 Calcium 9.0 Cardiac Enzymes 08/31/17 Range/Units 03:08 Troponin I 0.27 H* (< 0.04) ng/mL - ABG Interpretation ABG results: PT/INR, D-dimer PT 14.5 Seconds (9.4-12.1) H 08/31/17 03:08 - Impressions Impressions Chest X-Ray 08/31/17 02:16 IMPRESSION: Patchy left basilar airspace disease likely represents pneumonia. D/ / Felix Palomo MD / Felix Palomo MD Interpreting Provider: Felix Palomo MD Consult Discharge Plan - Plan [facility]errals: [facility] [Primary Care Provider] - <Gael Mcelroy - Last Filed: 08/31/17 18:48> Date of Encounter: 08/31/17 - Assessment and plan (1) CHF exacerbation Current Visit: No Status: Acute Qualifiers: Heart failure type: systolic Qualified Code(s): I50.23 - Acute on chronic systolic (congestive) heart failure (2) Elevated troponin Current Visit: No Status: Resolved (3) CAD (coronary artery disease) Current Visit: No Status: Chronic Qualifiers: Coronary Disease-Associated Artery/Lesion type: bypass graft [place] vs. transplanted heart: [place] heart Associated angina: without angina Qualified Code(s): I25.810 - Atherosclerosis of coronary artery bypass graft(s) without angina pectoris (4) COPD exacerbation Current Visit: Yes Status: Acute (5) Elevated d-dimer Current Visit: Yes Status: Acute (6) DVT prophylaxis Current Visit: Yes Status: Acute (7) Acute and chronic respiratory failure ([id number]) Current Visit: Yes Status: Acute Qualifiers: Respiratory failure complication: unspecified whether with hypoxia or hypercapnia Qualified Code(s): J96.20 - Acute and chronic respiratory failure , unspecified whether with hypoxia or hypercapnia - Time Spent With Patient Total time spent is greater than 50% in coordination of care (as documented) at patient's floor/unit and/or counseling patient: - Constitutional Vitals: Temp Pulse Resp BP Pulse Ox 98.4 F 92 16 148/85 95 08/31/17 16:41 08/31/17 16:41 08/31/17 16:41 08/31/17 16:41 08/31/17 16:41 Internal Medicine: Result - Labs CBC & Chem 7: 08/31/17 03:08 08/31/17 03:08 Labs: Short CBC 08/31/17 Range/Units 03:08 WBC 13.7 H (4.3-11.1) K/mcL Hgb 12.1 L (12.9-16.9) g/dL Hct 36.2 L (37.5-50.1) % Plt Count 133 L (140-400) K/mcL Neutrophils # 11.2 H (1.6-8.9) K/mcL BMP 08/31/17 03:08 Sodium 137 Potassium 3.3 L Chloride 99 Carbon Dioxide 32 H BUN 14 Creatinine 0.60 L Glucose 92 Calcium 9.0 Cardiac Enzymes 08/31/17 08/31/17 Range/Units 03:08 09:05 Troponin I 0.27 H* 0.21 H* (< 0.04) ng/mL - ABG Interpretation ABG results: ABG ABG pH 7.49 pH Units (7.32-7.45) H 08/31/17 10:30 ABG pCO2 45 mmHg (35-45) 08/31/17 10:30 ABG pO2 81 mmHg (85-104) L 08/31/17 10:30 ABG O2 Saturation 97 % (95-98) 08/31/17 10:30 PT/INR, D-dimer PT 14.5 Seconds (9.4-12.1) H 08/31/17 03:08 - Impressions Impressions Chest X-Ray 08/31/17 02:16 IMPRESSION: Patchy left basilar airspace disease likely represents pneumonia. D/ / Felix Palomo MD / Felix Palomo MD Interpreting Provider: Felix Palomo MD - Attending Attestation I examined this patient and my medical decision-making was reviewed with the Resident Physician on 08/31/17. I agree with the documented findings, disposition and treatment plan as described except to the extent set forth below. Mr Duran was admitted earlier today with acute resp failure, COPD and CHF. He remains very dyspneic at rest. No fever Exam alert. Moderate resp distress. Heart distant Agree with plan as above.
[2017-08-31] MEDS ORDERED: Potassium Chloride Elixir 20 MEQ/15 ML UDC PO ONE (10:14)
[2017-08-31 10:34] LABS: ABG Base Excess 9 mEq/L (-2 to 3); ABG HCO3 34 mEq/L (21-27); ABG Oxygen Saturation 97 % (95-98); ABG PCO2 45 mmHg (35-45); ABG PH 7.49 pH Units (7.32-7.45); ABG PO2 81 mmHg (85-104); ABG TCO2 35 mEq/L (20-26)
--- NOTE | 2017-08-31 15:49 | Cardiology Consult Note ---
<Kal Bear - Last Filed: 08/31/17 15:57> Date of Encounter: 08/31/17 Time of Encounter: 15:35 Assessment and Plan (1) Elevated troponin Current Visit: No Status: Resolved Troponin trending downward: 0.45, 0.27, 0.21 Etiology of troponin rise is unclear. Possibly due to demand ischemia. Plan Echo pending, for reevaluation to help guide medical management Continue Heparin drip for minimum of 48 hours Continue antiplatelet agents (2) CHF exacerbation Current Visit: No Status: Acute Agree with primary care teams current plan Qualifiers: Heart failure type: systolic Qualified Code(s): I50.23 - Acute on chronic systolic (congestive) heart failure (3) COPD exacerbation Current Visit: Yes Status: Acute Agree with primary care team on current plan (4) Elevated d-dimer Current Visit: Yes Status: Acute VQ scan/Dopplers pending (5) CAD (coronary artery disease) Current Visit: No Status: Chronic Continue spironolactone, losartan, coreg, atorvastatin, ASA 81mg Qualifiers: Coronary Disease-Associated Artery/Lesion type: bypass graft [place] vs. transplanted heart: [place] heart Associated angina: without angina Qualified Code(s): I25.810 - Atherosclerosis of coronary artery bypass graft(s) without angina pectoris Discussion w patient/family: The assessment and plan as outlined above was discussed with the patient and/or family members who expressed understanding and agreement. All questions were answered. Thank you for involving us in the care of your patient. Please call with any questions. History of Present Illness Consult date: 08/31/17 Requesting physician: Amber Carrington Consult reason: Elevated troponin Chief complaint: JOELLEN History of present illness: Mr. Duran is a 67 year old male with a past medical history of systolic CHF ejection fraction of 20%, CABG, PVD, COPD requiring 3 L when necessary, HLD, HTN , and one half pack per day smoker sent to the emergency department from an outside facility for the complaint of shortness of breath has been worsening over the past week. According to the patient he has been having shortness of breath over the past year, a relative came in from out of town to visit in the squad was called because they were concerned about the patient's breathing. The patient was initially seen at an outside facility in which she was evaluated for a COPD exacerbation, troponin elevation as well as an elevated d- dimer. CT scan was ordered at the outside facility, however the dye infiltrated the patient's family requested that he come to [place]. Quench the patient states that his main concern is his shortness of breath that appears to be constant and has been worsening over the past week and associated with a productive cough. He states he does use his oxygen at home as he needs it and when he sleeps. States the most activity he does is walking from [id number]. Patient denies any fevers, chills, chest pain, palpitations, nausea, vomiting, abdominal pain or diarrhea. Past Med Surg Social Fam HX - Past Medical History Medical history: GERD, hyperlipidemia, hypertension, CVA, coronary artery disease, CHF, COPD Psychiatric history: no psych history - Past Surgical History Surgical History: coronary bypass (CABG), pacemaker/AICD - Social History Smoking Status: Current every day smoker Packs per day: 1/2 ppd Smokeless Tobacco Status: No Alcohol use: none Drug use: none - Family History Mother History Unknown: Yes Father History Unknown: Yes Hx Family Cardiac Disorders: Yes Medications and Allergies Albuterol Sulfate [Albuterol Inhaler] 2 puff IH Q4HR 05/15/15 [History] Atorvastatin Calcium [Lipitor] 80 mg PO DAILY 05/15/15 [History] Cholecalciferol (Vitamin D3) [Vitamin D3] 1,000 unit PO DAILY 05/15/15 [History] Gabapentin [Neurontin] 1,200 mg PO TID 05/15/15 [History] Multivitamin [Multi-Day Vitamins] 1 tab PO QAM 05/15/15 [History] Potassium Chloride [Klor-Con Sprinkle] 20 meq PO QAM 05/15/15 [History] Carvedilol [Coreg] 6.25 mg PO BID #60 tablet 11/29/15 [Rx] Losartan Potassium [Cozaar] 50 mg PO DAILY #60 tab 11/29/15 [Rx] Furosemide [Lasix] 40 mg PO BID 02/05/17 [History] traMADol [Ultram] 50 mg PO TID PRN 02/05/17 [History] traZODone [TraZODone] 50 mg PO HS 02/05/17 [History] Aspirin 81 mg PO DAILY 03/12/17 [History] Budesonide/Formoterol 160/4.5 [Symbicort 160/4.5] 2 puff IH BIDR 03/12/17 [ History] Finasteride [Proscar] 5 mg PO DAILY 03/12/17 [History] Oxygen 3 l NS CONT 03/12/17 [History] Tamsulosin [Flomax] 0.4 mg PO HS 03/12/17 [History] Tiotropium [Spiriva] 1 puff IH DAILY 03/12/17 [History] Albuterol Neb [Proventil Neb] 2.5 mg IH Q4H PRN 08/31/17 [History] Apixaban [Eliquis] 5 mg PO BID 08/31/17 [History] Sildenafil Citrate 100 mg PO AD PRN 08/31/17 [History] 3 Allergy/AdvReac Type Severity Reaction Status Date / Time No Known Allergies Allergy Verified 02/05/17 10:34 All Systems Review: The remainder of the systems were reviewed and are negative - Constitutional Constitutional: no chills, no fever(s) - Cardiovascular Cardiovascular: dyspnea at rest, dyspnea on exertion, leg edema, no chest pain at rest, no chest pain with exertion, no lightheadedness - Respiratory Respiratory: cough, dyspnea - Gastrointestinal Gastrointestinal: no abdominal pain, no coffee ground emesis, no diarrhea, no hematemesis, no hematochezia, no nausea Physical Examination General: Conversant, No Apparent Distress HEENT: Atraumatic, Normocephaly, Mucus Membranes Moist Neck: No JVD, Normal carotid pulses Cardiac: Reg Rate and Rhythm, Normal S1 and S2, No Murmur Lungs: Other (Audible wheezing at bedside. Increased work of breathing. Diffuse wheezes throughout all lung [place]. ) Neuro: Alert and responsive, No focal deficits noted Abdomen: Soft, Non-Tender Skin: No rashes noted on visualized skin Musculoskeletal: No Chest Wall Tenderness Extremities: No Clubbing, No Cyanosis, No Edema, Normal Pulses Results 08/31/17 03:08 08/31/17 03:08 Lab Results 08/31/17 08/31/17 08/31/17 03:08 03:08 03:08 WBC 13.7 H Hgb 12.1 L Hct 36.2 L Plt Count 133 L INR APTT Sodium 137 Potassium 3.3 L Chloride 99 Carbon Dioxide 32 H BUN 14 Creatinine 0.60 L Glucose 92 Calcium 9.0 Magnesium 1.6 Troponin I B-Natriuretic Peptide 781 H 08/31/17 08/31/17 08/31/17 03:08 03:08 09:05 WBC Hgb Hct Plt Count INR 1.3 APTT 29.7 Sodium Potassium Chloride Carbon Dioxide BUN Creatinine Glucose Calcium Magnesium Troponin I 0.27 H* 0.21 H* B-Natriuretic Peptide 08/31/17 11:32 WBC Hgb Hct Plt Count INR APTT 32.5 Sodium Potassium Chloride Carbon Dioxide BUN Creatinine Glucose Calcium Magnesium Troponin I B-Natriuretic Peptide Consult Discharge Plan - Plan [facility]errals: [facility] [Primary Care Provider] - <Martha Tay - Last Filed: 08/31/17 17:11> Date of Encounter: 08/31/17 - Attending Attestation I examined this patient and my medical decision-making was reviewed with the Resident Physician. I agree with the documented findings, disposition and treatment plan. IMPRESSION: Mr. Duran presents at the request of his family who was visiting from out of town and became concerned about patient's breathing and a description of a recent episode of substernal/midepigastric discomfort. Patient at the bedside is alert, oriented to self and year but not to place. Presently denies chest pain or SOB. Has no other complaints. Workup so far demonstrates elevated troponin. Echo is pending. Has known ICM with EF 20% by echo in 2016. PLAN: Trend troponin, heparin drip. Not a good candidate for C - no targets for revascularization by [facility] in 2016. Continue asa, plavix, statin, BB, ARB. Echo pending. Agree with IV diuresis. Assessment and Plan Discussion w patient/family: The assessment and plan as outlined above was discussed with the patient and/or family members who expressed understanding and agreement. All questions were answered. Thank you for involving us in the care of your patient. Please call with any questions. History of Present Illness History of present illness: Mr. Duran is a 67 year old male All Systems Review: The remainder of the systems were reviewed and are negative Physical Examination Vital Signs, Last 4 Hours Temp Pulse Resp BP Pulse Ox 08/31/17 16:41 98.4 F 92 16 148/85 95 08/31/17 16:19 16 95 08/31/17 16:13 98.6 F 72 16 130/75 95 Results 08/31/17 03:08 08/31/17 03:08 Lab Results 08/31/17 08/31/17 08/31/17 03:08 03:08 03:08 WBC 13.7 H Hgb 12.1 L Hct 36.2 L Plt Count 133 L INR APTT Sodium 137 Potassium 3.3 L Chloride 99 Carbon Dioxide 32 H BUN 14 Creatinine 0.60 L Glucose 92 Calcium 9.0 Magnesium 1.6 Troponin I B-Natriuretic Peptide 781 H 08/31/17 08/31/17 08/31/17 03:08 03:08 09:05 WBC Hgb Hct Plt Count INR 1.3 APTT 29.7 Sodium Potassium Chloride Carbon Dioxide BUN Creatinine Glucose Calcium Magnesium Troponin I 0.27 H* 0.21 H* B-Natriuretic Peptide 08/31/17 11:32 WBC Hgb Hct Plt Count INR APTT 32.5 Sodium Potassium Chloride Carbon Dioxide BUN Creatinine Glucose Calcium Magnesium Troponin I B-Natriuretic Peptide
[2017-08-31 16:16] LABS: Adenovirus Not Detected (Not Detect); Bordetella Pertussis Not Detected (Not Detect); Chlamydophila pneumoniae Not Detected (Not Detect); Coronavirus 229E Not Detected (Not Detect); Coronavirus HKU1 Not Detected (Not Detect); Coronavirus NL63 Not Detected (Not Detect); Coronavirus OC43 Not Detected (Not Detect); Human Metapneumovirus Not Detected (Not Detect); Human Rhinovirus/Enterovirus Not Detected (Not Detect); Influenza A Subtype 2009 H1 Not Detected (Not Detect); Influenza A Untypeable Not Detected (Not Detect); Influenza B Not Detected (Not Detect); Mycoplasma pneumoniae Not Detected (Not Detect); Parainfluenza Virus 1 Not Detected (Not Detect); Parainfluenza Virus 2 Not Detected (Not Detect); Parainfluenza Virus 3 Not Detected (Not Detect); Parainfluenza Virus 4 Not Detected (Not Detect); Respiratory Syncytial Virus Not Detected (Not Detect)
[2017-08-31] MEDS: Levofloxacin 750 MG/150 ML 750 MG/150 ML BAG IVPB SCH (17:44)
--- NOTE | 2017-08-31 23:03 | Event Note ---
Date of Encounter: 08/31/17 Time of Encounter: 22:56 Alerted by pts. nurse that pt. is wanting food. Currently NPO. Cardiology notes state that pt. is not good candidate for LHC. NPO orders DC'd and cardiac diet ordered.
[2017-09-01] MEDS: methylPREDNISolone 125 MG/2 ML VIAL IVP SCH ×3 (02:28→16:41)
[2017-09-01] MEDS: Ipratropium/Albuterol Neb 3 ML IH SCH ×6 (03:48→23:11)
[2017-09-01 04:01] LABS: Basophils % 0.1 %; Hematocrit 37.6 % (37.5-50.1); Hemoglobin 12.6 g/dL (12.9-16.9); Immature Granulocytes % 1.1 % (0-4); Lymphocytes # 0.4 K/mcL (0.6-4.6); Lymphocytes % 3.4 %; Mean Corpuscular HGB Conc 33.5 g/dL (31.6-35.5); Mean Corpuscular Hemoglobin 32.7 pg (28.0-33.3); Mean Corpuscular Volume 97.7 fL (83.0-100.0); Mean Platelet Volume 11.6 fL (9.4-12.4); Monocytes # 0.6 K/mcL (0.0-1.3); Monocytes % 4.9 %; Neutrophils # 10.3 K/mcL (1.6-8.9); Platelet Count 163 K/mcL (140-400); Red Blood Count 3.85 M/mcL (4.19-5.50); Red Cell Distribution Width 13.1 % (11.5-14.5); Segmented Neutrophils % 90.5 %
[2017-09-01 04:20] LABS: BUN/Creatinine Ratio 24 (6-26); Blood Urea Nitrogen 15 mg/dL (8-23); Calcium 8.9 mg/dL (8.6-10.3); Carbon Dioxide 32 mEq/L (23-29); Chloride 96 mEq/L (98-107); Glucose 178 mg/dL (70-105); Osmolality,Calculated 291 (280-300); Sodium 138 mEq/L (136-145); eGFR For African Americans > 60 (> 60); eGFR For Non-African Americans > 60 (> 60)
[2017-09-01] MEDS: Heparin 25,000 UNIT/500 ML D5W 25,000 UNIT/500 ML BAG IVC SCH (04:29)
[2017-09-01] MEDS ORDERED: *HR* Metoprolol 5 MG/5 ML VIAL IVP ONE (05:47)
[2017-09-01] MEDS: Budesonide/Formoterol 160/4.5 MDI IH SCH ×2 (07:55→19:38)
[2017-09-01] MEDS: Levofloxacin 750 MG/150 ML 750 MG/150 ML BAG IVPB SCH (09:43)
[2017-09-01] MEDS: Aspirin Enteric Coated 81 MG Tablet PO SCH (09:44)
[2017-09-01] MEDS: Furosemide 40 MG/4 ML VIAL IVP SCH ×2 (09:44→16:41)
[2017-09-01 10:47] LABS: Magnesium 1.6 mg/dL (1.6-2.6)
[2017-09-01] MEDS ORDERED: Albuterol 2.5 MG/3 ML NEBULIZER IH PRN (15:47)
[2017-09-01] MEDS ORDERED: traMADol 50 MG TABLET PO PRN (15:47)
[2017-09-01] MEDS ORDERED: Budesonide/Formoterol 160/4.5 MDI IH SCH (16:00)
[2017-09-01] MEDS ORDERED: Tiotropium 18 MCG inhalation IH SCH (16:00)
--- NOTE | 2017-09-01 16:53 | Cardiology Progress Note ---
<Kal Bear - Last Filed: 09/01/17 16:51> Date of Encounter: 09/01/17 Time of Encounter: 16:51 Assessment and Plan (1) Elevated troponin Current Visit: No Status: Resolved Troponin trending downward: 0.45, 0.27, 0.21 Etiology of troponin rise is unclear. Possibly due to demand ischemia Patient may have history of atrial fibrillation. Currently on Eliquis. Plan Echo is unchanged from prior echo Stop heparin drip at this time Request records from [facility] (2) CHF exacerbation Current Visit: No Status: Acute Agree with primary care teams current plan. Stop IV lasix after 24 hours, switch to PO. Qualifiers: Heart failure type: systolic Qualified Code(s): I50.23 - Acute on chronic systolic (congestive) heart failure (3) COPD exacerbation Current Visit: Yes Status: Acute Agree with primary care team on current plan (4) CAD (coronary artery disease) Current Visit: No Status: Chronic Continue spironolactone, losartan, coreg, atorvastatin, ASA 81mg Qualifiers: Coronary Disease-Associated Artery/Lesion type: bypass graft [place] vs. transplanted heart: [place] heart Associated angina: without angina Qualified Code(s): I25.810 - Atherosclerosis of coronary artery bypass graft(s) without angina pectoris Discussion w patient/family: The assessment and plan as outlined above was discussed with the patient and/or family members who expressed understanding and agreement. All questions were answered. Thank you for involving us in the care of your patient. Please call with any questions. Subjective Principal diagnosis: elevated troponin/CHF Interval history: Mr. Duran is a 67 year old male with a past medical history of systolic CHF ejection fraction of 20%, CABG, PVD, COPD requiring 3 L when necessary, HLD, HTN , and one half pack per day smoker sent to the emergency department from an outside facility for the complaint of shortness of breath has been worsening over the past week. According to the patient he has been having shortness of breath over the past year, a relative came in from out of town to visit in the squad was called because they were concerned about the patient's breathing. The patient was initially seen at an outside facility in which she was evaluated for a COPD exacerbation, troponin elevation as well as an elevated d- dimer. CT scan was ordered at the outside facility, however the dye infiltrated the patient's family requested that he come to [place]. Patient states that his main concern is his shortness of breath that appears to be constant and has been worsening over the past week and associated with a productive cough. He states he does use his oxygen at home as he needs it and when he sleeps. States the most activity he does is walking from [id number]. Patient denies any fevers, chills, chest pain, palpitations, nausea, vomiting, abdominal pain or diarrhea. Objective Vital Signs, Last 4 Hours Temp Pulse Resp BP Pulse Ox 09/01/17 15:39 18 95 09/01/17 15:25 98.5 F 69 18 107/68 96 General: Conversant, No Apparent Distress HEENT: Atraumatic, Normocephaly, Mucus Membranes Moist Neck: No JVD, Normal carotid pulses Cardiac: Reg Rate and Rhythm, Normal S1 and S2, No Murmur Lungs: Other (wheezes in all lung [place], mild rales in bases. Patient breathing is improved from yesterday. ) Neuro: Alert and responsive, No focal deficits noted Abdomen: Soft, Non-Tender Skin: No rashes noted on visualized skin Musculoskeletal: No Chest Wall Tenderness Extremities: No Clubbing, No Cyanosis, No Edema, Normal Pulses Results 09/01/17 03:34 09/01/17 03:34 Lab Results 08/31/17 09/01/17 09/01/17 21:02 03:34 03:34 WBC 11.3 H Hgb 12.6 L Hct 37.6 Plt Count 163 APTT 80.7 H D Sodium 138 Potassium 3.0 L Chloride 96 L Carbon Dioxide 32 H BUN 15 Creatinine 0.63 L Glucose 178 H Calcium 8.9 Magnesium 1.6 09/01/17 03:34 WBC Hgb Hct Plt Count APTT 71.8 H Sodium Potassium Chloride Carbon Dioxide BUN Creatinine Glucose Calcium Magnesium - Imaging and Cardiology Echo: report reviewed Consult Discharge Plan - Plan Referrals: [facility] [Primary Care Provider] - <Martha Tay - Last Filed: 09/01/17 17:38> Date of Encounter: 09/01/17 Assessment and Plan Discussion w patient/family: I examined this patient and my medical decision-making was reviewed with the Resident Physician. I agree with the documented findings, disposition and treatment plan. Echo reviewed - unchanged EF. Troponin elevation may represent demand ischemia in setting of known CAD. Has no targets for revascularization by previous [facility]. Recommend medical management - asa, BB, statin, aldosterone antagonist. Recommend another 24h of IV diuresis. Heparin gtt to be stopped. Patient noted also to be on Eliquis for unclear reasons - per primary team there 's a history of AFIB. However, we have no documentation of AFIB at this institution. Recently seen in February 2017 as outpatient by [facility] - not on Eliquis at that time. Primary team to obtain [place] medical records for clarification. ECG demonstrates a-paced rhythm. All ECGs in [facility] were reviewed - none demonstrate atrial fibrillation. Objective Vital Signs, Last 4 Hours Temp Pulse Resp BP Pulse Ox 09/01/17 15:39 18 95 09/01/17 15:25 98.5 F 69 18 107/68 96 Results 09/01/17 03:34 09/01/17 03:34 Lab Results 08/31/17 09/01/17 09/01/17 21:02 03:34 03:34 WBC 11.3 H Hgb 12.6 L Hct 37.6 Plt Count 163 APTT 80.7 H D Sodium 138 Potassium 3.0 L Chloride 96 L Carbon Dioxide 32 H BUN 15 Creatinine 0.63 L Glucose 178 H Calcium 8.9 Magnesium 1.6 09/01/17 03:34 WBC Hgb Hct Plt Count APTT 71.8 H Sodium Potassium Chloride Carbon Dioxide BUN Creatinine Glucose Calcium Magnesium
[2017-09-01] MEDS: Gabapentin 400 MG CAPSULE PO SCH ×2 (16:55→22:52)
--- NOTE | 2017-09-01 17:02 | Internal Med Progress Note ---
<SujathaChuy - Last Filed: 09/01/17 17:23> Date of Encounter: 09/01/17 Time of Encounter: 14:00 - Assessment and plan (1) COPD exacerbation Current Visit: Yes Status: Acute Assessment and plan: Patient has a history of COPD. Denies any acute infectious symptoms like fevers , myalgias, productive cough. Has increased the shortness of breath. - continue Levaquin (day 2) - continue scheduled duo nebs, Symbicort, Solu-Medrol (currently 60 mg Q8 hours IVP) - Oxygen supportive treatment - BiPAP if needed - Plan to discharge tomorrow (2) CHF exacerbation Current Visit: No Status: Acute Assessment and plan: Last echo done in 2015 showed LVEF of 20%, left ventricular diastolic dysfunction, and global hypotension. On initial workup, patient did have elevated troponins which have since downtrended, as well as an elevated BNP. - Switched IV lasix to PO - Strict I and O - Fluid restriction diet after resume diet. - Continue home medication beta shala, ARB, spironolactone - Patient has been placed PPM and AICD Qualifiers: Heart failure type: systolic Qualified Code(s): I50.23 - Acute on chronic systolic (congestive) heart failure (3) Elevated troponin Current Visit: No Status: Resolved Assessment and plan: Cardiology following. Elevated troponin likely due to demand ischemia. Echo unchanged from previous with LVEF 20-25% and severely dilated left ventricle as well as hypokinetic wall motions. - Continue continuous cardiac monitoring - troponins downtrending 0.45/0.27/0.21 - Heparin discontinued and Holding Eliquis due to possible history of A. Fib but uncertain. [facility] - Spoke with cardiology resident and agree with plan. (4) CAD (coronary artery disease) Current Visit: No Status: Chronic Assessment and plan: Continue home medications. Qualifiers: Coronary Disease-Associated Artery/Lesion type: bypass graft [place] vs. transplanted heart: [place] heart Associated angina: without angina Qualified Code(s): I25.810 - Atherosclerosis of coronary artery bypass graft(s) without angina pectoris (5) Elevated d-dimer Current Visit: Yes Status: Acute Assessment and plan: Patient has elevated d-dimer, CTA has been attempted in [place], however, because of infiltration of contrast, the result is nondiagnostic. - VQ scan unable to be performed to patient's inability to lay fully supine - Doppler LE b/l normal, but great saphenous veins not well visualized - Cardiology will discontinue heparin for now. (6) Acute and chronic respiratory failure ([id number]) Current Visit: Yes Status: Acute Assessment and plan: likely multifactorial due to acute COPD exacerbation, pneumonia, and acute CHF exacerbation. All plans as below. Qualifiers: Respiratory failure complication: unspecified whether with hypoxia or hypercapnia Qualified Code(s): J96.20 - Acute and chronic respiratory failure , unspecified whether with hypoxia or hypercapnia (7) DVT prophylaxis Current Visit: Yes Status: Acute Assessment and plan: SQ heparin - Time Spent With Patient Total time spent is greater than 50% in coordination of care (as documented) at patient's floor/unit and/or counseling patient: - Subjective Interval history: 67-year-old male transferred from [facility] emergency room for shortness of breath and chest pain. Past medical history in includes heart failure with reduced ejection fraction of 20% status post AICD, CAD, COPD. Patient was also found to have elevated troponins. Patient is DNR [facility]. Today, patient is poor historian. Unable to determine his baseline. Patient is unable to follow verbal commands, but able to answer basic questions. He reports that his shortness of breath has improved, denies chest pain, fever, chills, nausea, vomiting, diarrhea, constipation. He denies difficulty voiding. He reports that he is tolerating by mouth intake. - Constitutional Vitals: Temp Pulse Resp BP Pulse Ox 98.5 F 69 18 107/68 95 09/01/17 15:25 09/01/17 15:25 09/01/17 15:39 09/01/17 15:25 09/01/17 15:39 General appearance: Present: A&O X 3, no acute distress, answers questions appropriately - Head Head exam: Present: atraumatic, normocephalic - Eye Eye exam: Present: PERRL, conjuntiva pink, sclera anicteric Pupils: Present: PERRL - Neck Neck exam general surgery: Present: supple, trachea midline. Absent: lymphadenopathy - Respiratory Respiratory exam: Present: CTAB. Absent: accessory muscle use, rales, rhonchi, wheezes - Cardiovascular Cardiovascular exam: Present: RRR, +S1, +S2. Absent: diastolic murmur, gallop, rubs, systolic murmur - GI/Abdominal GI/Abdominal exam: Present: normal bowel sounds, soft, no peritoneal signs. Absent: distended, tenderness - Extremities Exam Extremities exam: Present: warm, radial pulses palpable and symmetrical. Absent : calf tenderness, cyanotic, pedal edema - Neurological Exam Neurological exam: Present: CN II-XII intact, oriented X3, no focal deficits. Absent: pronater drift, facial droop, speech deficit - Skin Skin exam: Present: dry, intact Internal Medicine: Result - Labs CBC & Chem 7: 09/01/17 03:34 09/01/17 03:34 Labs: Short CBC 09/01/17 Range/Units 03:34 WBC 11.3 H (4.3-11.1) K/mcL Hgb 12.6 L (12.9-16.9) g/dL Hct 37.6 (37.5-50.1) % Plt Count 163 (140-400) K/mcL Neutrophils # 10.3 H (1.6-8.9) K/mcL BMP 09/01/17 03:34 Sodium 138 Potassium 3.0 L Chloride 96 L Carbon Dioxide 32 H BUN 15 Creatinine 0.63 L Glucose 178 H Calcium 8.9 - ABG Interpretation ABG results: ABG ABG pH 7.49 pH Units (7.32-7.45) H 08/31/17 10:30 ABG pCO2 45 mmHg (35-45) 08/31/17 10:30 ABG pO2 81 mmHg (85-104) L 08/31/17 10:30 ABG O2 Saturation 97 % (95-98) 08/31/17 10:30 PT/INR, D-dimer PT 14.5 Seconds (9.4-12.1) H 08/31/17 03:08 - Impressions Impressions Echocardiogram 08/31/17 10:18 Impressions: LVEF 20-25%. Severely dilated left ventricle. Severe global left ventricular systolic dysfunction. Indeterminate diastolic function. Atypical septal motion consistent with paced rhythm. Mildly dilated right ventricle. Mild right ventricular hypokinesis. Severely dilated left atrium. Moderate mitral regurgitation. Mild-moderate pulmonary hypertension. Estimated RVSP is 45 mmHg. A device lead was visualized in the right atrium and right ventricle. Left Ventricular Wall Motion: Rest Echo Findings The apex, apical inferior, mid inferior, basal inferior, apical anterior, mid anterior, basal anterior, apical septal, mid inferior septal, basal inferior septal, apical lateral, mid anterior lateral, basal anterior lateral, mid anterior septal, mid inferior lateral, basal anterior septal and basal inferior lateral peterson were hypokinetic. Findings: Study Quality * Technically adequate exam. ECG Findings * Paced rhythm. Left Ventricle * LVEF 20-25%. * Severely dilated left ventricle. * Severe global left ventricular systolic dysfunction. * Indeterminate diastolic function. * Atypical septal motion consistent with paced rhythm. Right Ventricle * Mildly dilated right ventricle. * Mild right ventricular hypokinesis. Left Atrium * Severely dilated left atrium. Right Atrium * Moderately dilated right atrium. Interatrial Septum * Interatrial septum not well evaluated. Aortic Valve * Aortic valve not well visualized. * Mildly calcified aortic valve leaflets. * No aortic regurgitation. * No aortic stenosis. Mitral Valve * Apical displacement of the mitral valve leaflets. * Moderate mitral regurgitation. * No mitral stenosis. Tricuspid Valve * Normal tricuspid valve structure. * Trace tricuspid regurgitation. * Mild-moderate pulmonary hypertension. * Estimated RVSP is 45 mmHg. * Estimated RA pressure is 5 mmHg. Pulmonic Valve * Normal pulmonic valve structure and function. * Trace pulmonic regurgitation. Aorta * Normally sized aortic root. Pericardium * The pericardium appears normal. IVC * Normal IVC dimensions and inspiratory collapse. Device lead * A device lead was visualized in the right atrium and right ventricle. Pulmonary Artery * Normal visualized portions of the main pulmonary artery. Consult Discharge Plan - Plan [facility]errals: [facility] [Primary Care Provider] - <Kelly Solares - Last Filed: 09/01/17 17:51> Date of Encounter: 09/01/17 - Time Spent With Patient Total time spent is greater than 50% in coordination of care (as documented) at patient's floor/unit and/or counseling patient: - Constitutional Vitals: Temp Pulse Resp BP Pulse Ox 98.5 F 69 18 107/68 95 09/01/17 15:25 09/01/17 15:25 09/01/17 15:39 09/01/17 15:25 09/01/17 15:39 Internal Medicine: Result - Labs CBC & Chem 7: 09/01/17 03:34 09/01/17 03:34 Labs: Short CBC 04/17/18 Range/Units 03:34 WBC 11.3 H (4.3-11.1) K/mcL Hgb 12.6 L (12.9-16.9) g/dL Hct 37.6 (37.5-50.1) % Plt Count 163 (140-400) K/mcL Neutrophils # 10.3 H (1.6-8.9) K/mcL BMP 09/01/17 03:34 Sodium 138 Potassium 3.0 L Chloride 96 L Carbon Dioxide 32 H BUN 15 Creatinine 0.63 L Glucose 178 H Calcium 8.9 - ABG Interpretation ABG results: ABG ABG pH 7.49 pH Units (7.32-7.45) H 08/31/17 10:30 ABG pCO2 45 mmHg (35-45) 08/31/17 10:30 ABG pO2 81 mmHg (85-104) L 08/31/17 10:30 ABG O2 Saturation 97 % (95-98) 08/31/17 10:30 PT/INR, D-dimer PT 14.5 Seconds (9.4-12.1) H 08/31/17 03:08 - Impressions Impressions Echocardiogram 08/31/17 10:18 Impressions: LVEF 20-25%. Severely dilated left ventricle. Severe global left ventricular systolic dysfunction. Indeterminate diastolic function. Atypical septal motion consistent with paced rhythm. Mildly dilated right ventricle. Mild right ventricular hypokinesis. Severely dilated left atrium. Moderate mitral regurgitation. Mild-moderate pulmonary hypertension. Estimated RVSP is 45 mmHg. A device lead was visualized in the right atrium and right ventricle. Left Ventricular Wall Motion: Rest Echo Findings The apex, apical inferior, mid inferior, basal inferior, apical anterior, mid anterior, basal anterior, apical septal, mid inferior septal, basal inferior septal, apical lateral, mid anterior lateral, basal anterior lateral, mid anterior septal, mid inferior lateral, basal anterior septal and basal inferior lateral peterson were hypokinetic. Findings: Study Quality * Technically adequate exam. ECG Findings * Paced rhythm. Left Ventricle * LVEF 20-25%. * Severely dilated left ventricle. * Severe global left ventricular systolic dysfunction. * Indeterminate diastolic function. * Atypical septal motion consistent with paced rhythm. Right Ventricle * Mildly dilated right ventricle. * Mild right ventricular hypokinesis. Left Atrium * Severely dilated left atrium. Right Atrium * Moderately dilated right atrium. Interatrial Septum * Interatrial septum not well evaluated. Aortic Valve * Aortic valve not well visualized. * Mildly calcified aortic valve leaflets. * No aortic regurgitation. * No aortic stenosis. Mitral Valve * Apical displacement of the mitral valve leaflets. * Moderate mitral regurgitation. * No mitral stenosis. Tricuspid Valve * Normal tricuspid valve structure. * Trace tricuspid regurgitation. * Mild-moderate pulmonary hypertension. * Estimated RVSP is 45 mmHg. * Estimated RA pressure is 5 mmHg. Pulmonic Valve * Normal pulmonic valve structure and function. * Trace pulmonic regurgitation. Aorta * Normally sized aortic root. Pericardium * The pericardium appears normal. IVC * Normal IVC dimensions and inspiratory collapse. Device lead * A device lead was visualized in the right atrium and right ventricle. Pulmonary Artery * Normal visualized portions of the main pulmonary artery. - Attending Attestation I saw and examined this patient independently, and my medical decision making was reviewed with the resident physician on 09/01/2017. I agree with the documented findings, assessment and treatment plan as described in the progress note.
[2017-09-01] MEDS: Furosemide 40 MG TABLET PO SCH (19:33)
[2017-09-01] MEDS ORDERED: Apixaban 5 MG TABLET PO SCH (21:00)
[2017-09-01] MEDS: traZODone 50 MG TABLET PO SCH (22:52)
[2017-09-01] MEDS: *HR* Heparin 5,000 UNIT/ML VIAL SQ SCH ×2 (22:53)
[2017-09-02] MEDS: methylPREDNISolone 125 MG/2 ML VIAL IVP SCH (01:10)
[2017-09-02] MEDS: Ipratropium/Albuterol Neb 3 ML IH SCH ×6 (03:52→23:44)
[2017-09-02 05:14] LABS: Basophils % 0.1 %; Hematocrit 40.3 % (37.5-50.1); Hemoglobin 13.2 g/dL (12.9-16.9); Immature Granulocytes % 0.6 % (0-4); Lymphocytes # 0.5 K/mcL (0.6-4.6); Lymphocytes % 2.2 %; Mean Corpuscular HGB Conc 32.8 g/dL (31.6-35.5); Mean Corpuscular Hemoglobin 32.7 pg (28.0-33.3); Mean Corpuscular Volume 99.8 fL (83.0-100.0); Mean Platelet Volume 11.5 fL (9.4-12.4); Monocytes # 0.8 K/mcL (0.0-1.3); Monocytes % 3.5 %; Platelet Count 187 K/mcL (140-400); Red Blood Count 4.04 M/mcL (4.19-5.50); Red Cell Distribution Width 13.4 % (11.5-14.5); Segmented Neutrophils % 93.6 %
[2017-09-02 05:20] LABS: INR 1.4; Prothrombin Time 14.7 Seconds (9.4-12.1)
[2017-09-02 05:37] LABS: BUN/Creatinine Ratio 29 (6-26); Blood Urea Nitrogen 24 mg/dL (8-23); Calcium 9.1 mg/dL (8.6-10.3); Carbon Dioxide 35 mEq/L (23-29); Chloride 101 mEq/L (98-107); Glucose 179 mg/dL (70-105); Osmolality,Calculated 299 (280-300); Potassium 3.8 mEq/L (3.5-5.1); Sodium 140 mEq/L (136-145); eGFR For African Americans > 60 (> 60); eGFR For Non-African Americans > 60 (> 60)
[2017-09-02] MEDS: *HR* Heparin 5,000 UNIT/ML VIAL SQ SCH ×2 (05:43→14:38)
[2017-09-02] MEDS: Budesonide/Formoterol 160/4.5 MDI IH SCH ×2 (07:27→19:59)
--- NOTE | 2017-09-02 09:16 | Discharge Summary ---
<Damien Cary - Last Filed: 09/02/17 16:52> Orders not resulted at time of discharge: Pending orders 09/02/17 21:02 PTT [Activated Partial Thrombo Time] [COAG] Timed Date of Encounter: 09/02/17 - Discharge Diagnosis (1) CHF exacerbation Status: Acute Qualifiers: Heart failure type: systolic Qualified Code(s): I50.23 - Acute on chronic systolic (congestive) heart failure (2) Elevated troponin Status: Resolved (3) CAD (coronary artery disease) Status: Chronic Qualifiers: Coronary Disease-Associated Artery/Lesion type: bypass graft [place] vs. transplanted heart: [place] heart Associated angina: without angina Qualified Code(s): I25.810 - Atherosclerosis of coronary artery bypass graft(s) without angina pectoris (4) COPD exacerbation Status: Acute (5) Elevated d-dimer Status: Acute (6) DVT prophylaxis Status: Acute (7) Acute and chronic respiratory failure ([id number]) Status: Acute Qualifiers: Respiratory failure complication: unspecified whether with hypoxia or hypercapnia Qualified Code(s): J96.20 - Acute and chronic respiratory failure , unspecified whether with hypoxia or hypercapnia Hospital course: Mr. Duran is a 67 year old male - Time Spent with Patient Total time spent providing and/or coordinating discharge services: - Discharge Medications Prescriptions: Carvedilol [Coreg] 12.5 mg PO BIDWM #120 tablet levoFLOXacin [Levaquin] 750 mg PO DAILY #5 tablet Losartan [Cozaar] 25 mg PO DAILY #30 tablet Magnesium Oxide [Mag-Ox] 400 mg PO BID #60 tablet predniSONE [PredniSONE] 40 mg PO DAILY #3 tablet Home Medications: Albuterol Sulfate [Albuterol Inhaler] 2 puff IH Q4HR 05/15/15 [History] Atorvastatin Calcium [Lipitor] 80 mg PO DAILY 05/15/15 [History] Cholecalciferol (Vitamin D3) [Vitamin D3] 1,000 unit PO DAILY 05/15/15 [History] Gabapentin [Neurontin] 1,200 mg PO TID 05/15/15 [History] Multivitamin [Multi-Day Vitamins] 1 tab PO QAM 05/15/15 [History] Potassium Chloride [Klor-Con Sprinkle] 20 meq PO QAM 05/15/15 [History] Furosemide [Lasix] 40 mg PO BID 02/05/17 [History] traMADol [Ultram] 50 mg PO TID PRN 02/05/17 [History] traZODone [TraZODone] 50 mg PO HS 02/05/17 [History] Aspirin 81 mg PO DAILY 03/12/17 [History] Budesonide/Formoterol 160/4.5 [Symbicort 160/4.5] 2 puff IH BIDR 03/12/17 [ History] Finasteride [Proscar] 5 mg PO DAILY 03/12/17 [History] Oxygen 3 l NS CONT 03/12/17 [History] Tamsulosin [Flomax] 0.4 mg PO HS 03/12/17 [History] Tiotropium [Spiriva] 1 puff IH DAILY 03/12/17 [History] Albuterol Neb [Proventil Neb] 2.5 mg IH Q4H PRN 08/31/17 [History] Apixaban [Eliquis] 5 mg PO BID 08/31/17 [History] Sildenafil Citrate 100 mg PO AD PRN 08/31/17 [History] Acetaminophen [Tylenol] 650 mg PO Q6HR PRN tablet 09/02/17 [Rx] Carvedilol [Coreg] 12.5 mg PO BIDWM #120 tablet 09/02/17 [Rx] Losartan [Cozaar] 25 mg PO DAILY #30 tablet 09/02/17 [Rx] Magnesium Oxide [Mag-Ox] 400 mg PO BID #60 tablet 09/02/17 [Rx] Omeprazole [PriLOSEC] 20 mg PO DAILY capsule. 09/02/17 [Rx] levoFLOXacin [Levaquin] 750 mg PO DAILY #5 tablet 09/02/17 [Rx] predniSONE [PredniSONE] 40 mg PO DAILY #3 tablet 09/02/17 [Rx] Allergies/Adverse Reactions: 3 Allergy/AdvReac Type Severity Reaction Status Date / Time No Known Allergies Allergy Verified 02/05/17 10:34 Date of admission: 08/31/17 02:12 [facility] care [facility]: [facility] Consults: 08/31/17 02:21 Consult to Cardiology [CONS] Routine Comment: Consulting Provider: Card[facility] Reason for Consult: NSTEMI? Call Completed: Yes 09/01/17 10:08 Consult to Demolition Crane Operator [CONS] Routine Reason for SW Consult: Patient's POA wants patient to discharge to [facility] 09/01/17 17:05 Consult to Occupational Therapy [CONS] Routine Comment: Evaluate, develop and implement POC Reason for Consult: SNF at discharge Does patient have active BEDREST order?: No Is patient medically & hemodynamically stable?: Yes Consult to Physical Therapy [CONS] Routine Comment: Evaluate, develop and implement POC Reason for Consult: SNF at discharge Does patient have active BEDREST order?: No Is patient medically & hemodynamically stable?: Yes - Constitutional Vitals: Temp Pulse Resp BP Pulse Ox 98 F 60 16 103/49 99 09/02/17 15:18 09/02/17 15:18 09/02/17 15:58 09/02/17 15:18 09/02/17 15:58 - Patient Status Disposition: Transfer SNF Condition: Fair - Discharge Instructions Follow Up With: [facility] [Primary Care Provider] - - Attending Attestation I performed an independent interview and examine this patient. I agree with the findings, assessment, and plan of Dr. Hinds, internal medicine resident. My input is reflected in his note. Cardiology input is also noted and appreciated. She continues to improve. Will taper steroids. Continue Levaquin for a total of 5-7 days. He is compensating nicely for his acute on chronic systolic CHF. He is currently on oral Lasix. He continues on Eliquis, old records on order. Do not believe further pursuing of pulmonary embolism would be warranted as it would not change current therapy, anticoagulation. All else as outlined above. 41 minutes spent on discharge and coordination of care. Anticipate discharge today or tomorrow. Patient did have runs of VT, less than 10 beats. Replacing his magnesium and potassium. <Harvey Hinds - Last Filed: 09/02/17 21:37> - NOTES TO OUTPATIENT PROVIDER Notes to Outpatient Provider: Follow up with outpatient driver courier for further management of Eliquis. Orders not resulted at time of discharge: Pending orders 09/02/17 21:02 PTT [Activated Partial Thrombo Time] [COAG] Timed Date of Encounter: 09/02/17 Time of Encounter: 09:15 - Discharge Diagnosis (1) COPD exacerbation Priority: Primary Status: Acute (2) CHF exacerbation Priority: Primary Status: Acute Qualifiers: Heart failure type: systolic Qualified Code(s): I50.23 - Acute on chronic systolic (congestive) heart failure (3) Acute and chronic respiratory failure ([id number]) Priority: Secondary Status: Chronic Qualifiers: Respiratory failure complication: hypoxia Qualified Code(s): J96.21 - Acute and chronic respiratory failure with hypoxia (4) Paroxysmal atrial fibrillation Priority: Secondary Status: Acute (5) CAD (coronary artery disease) Priority: Secondary Status: Chronic Qualifiers: Coronary Disease-Associated Artery/Lesion type: bypass graft [place] vs. transplanted heart: [place] heart Associated angina: without angina Qualified Code(s): I25.810 - Atherosclerosis of coronary artery bypass graft(s) without angina pectoris (6) Elevated troponin Priority: Secondary Status: Resolved (7) Elevated d-dimer Priority: Secondary Status: Acute (8) Hypomagnesemia Priority: Secondary Status: Acute (9) Hypokalemia Priority: Secondary Status: Acute (10) DVT prophylaxis Priority: Secondary Status: Acute Hospital course: Mr. Duran is a 67 year old male with a PMH of systolic CHF (ejection fraction of 20%), atrial fibrillation on Eliquis, HLD, HTN, CABG, PVD, COPD requiring 3 L O2 at night, and one half pack per day smoker sent to [facility] from the [facility] with a complaint of shortness of breath associated with a productive cough that has been worsening over the past week. Work up at the [facility] prior to arrival revealed COPD exacerbation, troponin elevation, as well as an elevated d-dimer. CT scan was ordered at the outside facility, however the dye infiltrated and the patient 's family requested that he come to [facility] instead. Bilateral lower extremity ultrasound revealed normal superficial and deep exam. CXR revealed patchy left basilar airspace disease likely representing pneumonia and patient was started on antibiotics, steroids, and Duonebs. Cardiology was consulted regarding serial troponins (trending downward from 0.45, 0.27, 0.21) and determined the etiology of troponemia was unclear, possibly due to demand ischemia. Patient had frequent short non-sustained runs of SVT on telemetry and cardiology increased patient's Coreg to 12.5mg BID and decreased Losartan to 25mg daily. Echo was unchanged from prior echo and patient continued Lasix 40mg PO BID. His BNP was elevated at 781 and he was compensating nicely for his acute on chronic systolic CHF. Both potassium and magnesium were supplemented. Labs revealed worsening leukocytosis following steroid administration. The patient was instructed to finish a 5 day course of steroids and a total of 7 days of Levaquin. Follow up with outpatient driver courier for further management of Eliquis. Further pursuing of pulmonary embolism would not be warranted as it would not change current therapy, anticoagulation. - Time Spent with Patient Total time spent providing and/or coordinating discharge services: Date of admission: 08/31/17 02:12 Primary care physician: [facility] Consults: 08/31/17 02:21 Consult to Cardiology [CONS] Routine Comment: Consulting Provider: Cardiology [facility] Reason for Consult: NSTEMI? Call Completed: Yes 09/01/17 10:08 Consult to Demolition Crane Operator [CONS] Routine Reason for SW Consult: Patient's POA wants patient to discharge to [facility] 09/01/17 17:05 Consult to Occupational Therapy [CONS] Routine Comment: Evaluate, develop and implement POC Reason for Consult: SNF at discharge Does patient have active BEDREST order?: No Is patient medically & hemodynamically stable?: Yes Consult to Physical Therapy [CONS] Routine Comment: Evaluate, develop and implement POC Reason for Consult: SNF at discharge Does patient have active BEDREST order?: No Is patient medically & hemodynamically stable?: Yes Discharging clinician: Harvey Hinds Anticipated date of discharge: 09/03/17 - Constitutional Vitals: Temp Pulse Resp BP Pulse Ox 97.8 F 89 16 101/65 98 09/02/17 07:02 09/02/17 07:02 09/02/17 07:27 09/02/17 07:02 09/02/17 07:27 General appearance: Present: A&O X 3, no acute distress, answers questions appropriately - Head Head exam: Present: atraumatic, normocephalic - Eye Eye exam: Present: PERRL, conjuntiva pink, sclera anicteric Pupils: Present: PERRL - ENT ENT exam: Present: mucous membranes moist, normal oropharynx - Neck Neck exam general surgery: Present: supple, trachea midline. Absent: lymphadenopathy - Respiratory Respiratory exam: Present: CTAB. Absent: accessory muscle use, rales, rhonchi, wheezes - Cardiovascular Cardiovascular exam: Present: RRR, +S1, +S2. Absent: diastolic murmur, gallop, rubs, systolic murmur - GI/Abdominal GI/Abdominal exam: Present: normal bowel sounds, soft, no peritoneal signs. Absent: distended, tenderness - Extremities Exam Extremities exam: Present: warm, radial pulses palpable and symmetrical. Absent : calf tenderness, cyanotic, pedal edema - Back Exam Back exam: Present: normal inspection. Absent: tenderness - Neurological Exam Neurological exam: Present: CN II-XII intact, oriented X3, no focal deficits. Absent: pronater drift, facial droop, speech deficit - Psychiatric Psychiatric exam: Present: normal affect, normal mood - Skin Skin exam: Present: dry, intact, warm - Patient Status Functional capacity at discharge: independent ambulation Overall status at discharge: patient is progressing back to baseline - Diet and Activity Activity: as per physical therapy Diet: low fat, low cholesterol, low salt diet
--- NOTE | 2017-09-02 10:06 | Cardiology Progress Note ---
<Kal Bear - Last Filed: 09/02/17 15:53> Date of Encounter: 09/02/17 Time of Encounter: 09:55 Assessment and Plan (1) Elevated troponin Current Visit: No Status: Resolved Troponin trending downward: 0.45, 0.27, 0.21 Etiology of troponin rise is unclear. Possibly due to demand ischemia Patient may have history of atrial fibrillation. Currently on Eliquis Per primary team, patient has hx of atrial fibrillation. [facility] Echo is unchanged from prior echo Patient did have frequent short runs of SVT overnight on tele Plan Increased patient coreg to 12.5mg BID and decreased losartan to 50mg [facility] records pending Follow up with outpatient veterinary anatomist for further management of eliquis (2) CHF exacerbation Current Visit: No Status: Acute Agree with primary care teams current plan. Continue on Lasix 40mg PO BID. Qualifiers: Heart failure type: systolic Qualified Code(s): I50.23 - Acute on chronic systolic (congestive) heart failure (3) COPD exacerbation Current Visit: Yes Status: Acute Agree with primary care team on current plan (4) CAD (coronary artery disease) Current Visit: No Status: Chronic Continue spironolactone, losartan, coreg, atorvastatin, ASA 81mg Qualifiers: Coronary Disease-Associated Artery/Lesion type: bypass graft [place] vs. transplanted heart: [place] heart Associated angina: without angina Qualified Code(s): I25.810 - Atherosclerosis of coronary artery bypass graft(s) without angina pectoris Discussion w patient/family: The assessment and plan as outlined above was discussed with the patient and/or family members who expressed understanding and agreement. All questions were answered. Thank you for involving us in the care of your patient. Please call with any questions. Subjective Principal diagnosis: elevated troponin/CHF Interval history: Mr. Duran is a 67 year old male with a past medical history of systolic CHF ejection fraction of 20%, CABG, PVD, COPD requiring 3 L when necessary, HLD, HTN , and one half pack per day smoker sent to the emergency department from an outside facility for the complaint of shortness of breath has been worsening over the past week. According to the patient he has been having shortness of breath over the past year, a relative came in from out of town to visit in the squad was called because they were concerned about the patient's breathing. The patient was initially seen at an outside facility in which she was evaluated for a COPD exacerbation, troponin elevation as well as an elevated d- dimer. CT scan was ordered at the outside facility, however the dye infiltrated the patient's family requested that he come to [place]. Patient states that his main concern is his shortness of breath that appears to be constant and has been worsening over the past week and associated with a productive cough. He states he does use his oxygen at home as he needs it and when he sleeps. States the most activity he does is walking from [id number]. Patient is improving towards baseline. States he feels his breathing is improved. Denies CP, palpitations, N/V, cough, abdominal pain or LE swelling. Objective Vital Signs, Last 4 Hours Temp Pulse Resp BP Pulse Ox 09/02/17 07:27 16 98 09/02/17 07:02 97.8 F 89 16 101/65 94 General: Conversant, No Apparent Distress HEENT: Atraumatic, Normocephaly, Mucus Membranes Moist Neck: No JVD, Normal carotid pulses Cardiac: Reg Rate and Rhythm, Normal S1 and S2, No Murmur Lungs: Normal Breath Sounds, No Wheeze, Rales, Rhonchi Neuro: Alert and responsive, No focal deficits noted Abdomen: Soft, Non-Tender Skin: No rashes noted on visualized skin Musculoskeletal: No Chest Wall Tenderness Extremities: No Clubbing, No Cyanosis, No Edema, Normal Pulses Results 09/02/17 04:58 09/02/17 04:58 Lab Results 09/01/17 09/02/17 09/02/17 03:34 04:58 04:58 WBC 21.4 H D Hgb 13.2 Hct 40.3 Plt Count 187 INR Sodium 138 140 Potassium 3.0 L 3.8 Chloride 96 L 101 Carbon Dioxide 32 H 35 H BUN 15 24 H Creatinine 0.63 L 0.82 Glucose 178 H 179 H Calcium 8.9 9.1 Magnesium 1.6 09/02/17 04:58 WBC Hgb Hct Plt Count INR 1.4 Sodium Potassium Chloride Carbon Dioxide BUN Creatinine Glucose Calcium Magnesium Consult Discharge Plan - Plan [facility]errals: [facility] [Primary Care Provider] - <Martha Tay - Last Filed: 09/02/17 16:40> Date of Encounter: 09/02/17 Assessment and Plan Discussion w patient/family: I examined this patient and my medical decision-making was reviewed with the Resident Physician. I agree with the documented findings, disposition and treatment plan. Mr. Duran is feeling much better. Primary team changed IV lasix to PO and anticipate discharge tomorrow. We have uptitrated his BB due to frequent short runs of NSVT on telemetry. Echo unchanged from prior. History of BiV ICD placement. No targets for revascularization by previous [facility]. Continue asa, BB , statin, aldosterone antagonist. Eliquis on his medication list for unclear reasons - per primary it is for AFIB. Patient does not know. Records requested but not yet obtained. Objective Vital Signs, Last 4 Hours Temp Pulse Resp BP Pulse Ox 09/02/17 15:58 16 99 09/02/17 15:18 98 F 60 16 103/49 100 Results 09/02/17 04:58 09/02/17 04:58 Lab Results 09/02/17 09/02/17 09/02/17 04:58 04:58 04:58 WBC 21.4 H D Hgb 13.2 Hct 40.3 Plt Count 187 INR 1.4 Sodium 140 Potassium 3.8 Chloride 101 Carbon Dioxide 35 H BUN 24 H Creatinine 0.82 Glucose 179 H Calcium 9.1
--- NOTE | 2017-09-02 10:11 | Physician Discharge Referral ---
ExtendedCare Referral Info Transfer To: SNF Provider in Charge: Damien Cary Provider in Charge after Transfer: PCP Institutional Level of Care: Skilled - Diagnosis (1) Acute and chronic respiratory failure ([id number]) Priority: Primary Status: Acute (2) CHF exacerbation Priority: Primary Status: Acute (3) COPD exacerbation Priority: Primary Status: Acute (4) Elevated troponin Priority: Secondary Status: Resolved (5) CAD (coronary artery disease) Priority: Secondary Status: Chronic (6) Elevated d-dimer Priority: Secondary Status: Acute (7) DVT prophylaxis Priority: Secondary Status: Acute Prognosis: Good Aware of Diagnosis: Patient Aware of Prognosis: Patient - Transfer Medications Home Medications: Albuterol Sulfate [Albuterol Inhaler] 2 puff IH Q4HR 05/15/15 [History] Atorvastatin Calcium [Lipitor] 80 mg PO DAILY 05/15/15 [History] Cholecalciferol (Vitamin D3) [Vitamin D3] 1,000 unit PO DAILY 05/15/15 [History] Gabapentin [Neurontin] 1,200 mg PO TID 05/15/15 [History] Multivitamin [Multi-Day Vitamins] 1 tab PO QAM 05/15/15 [History] Potassium Chloride [Klor-Con Sprinkle] 20 meq PO QAM 05/15/15 [History] Carvedilol [Coreg] 6.25 mg PO BID #60 tablet 11/29/15 [Rx] Losartan Potassium [Cozaar] 50 mg PO DAILY #60 tab 11/29/15 [Rx] Furosemide [Lasix] 40 mg PO BID 02/05/17 [History] traMADol [Ultram] 50 mg PO TID PRN 02/05/17 [History] traZODone [TraZODone] 50 mg PO HS 02/05/17 [History] Aspirin 81 mg PO DAILY 03/12/17 [History] Budesonide/Formoterol 160/4.5 [Symbicort 160/4.5] 2 puff IH BIDR 03/12/17 [ History] Finasteride [Proscar] 5 mg PO DAILY 03/12/17 [History] Oxygen 3 l NS CONT 03/12/17 [History] Tamsulosin [Flomax] 0.4 mg PO HS 03/12/17 [History] Tiotropium [Spiriva] 1 puff IH DAILY 03/12/17 [History] Albuterol Neb [Proventil Neb] 2.5 mg IH Q4H PRN 08/31/17 [History] Apixaban [Eliquis] 5 mg PO BID 08/31/17 [History] Sildenafil Citrate 100 mg PO AD PRN 08/31/17 [History] Allergies/Adverse Reactions: 3 Allergy/AdvReac Type Severity Reaction Status Date / Time No Known Allergies Allergy Verified 02/05/17 10:34 - Respiratory Orders Oxygen / L per min (3) Smoking Cessation: Smoking cessation has been advised. For more information, call the [place] [employer] Quit Line at 3-344-EFUM-NOW. - Advance Directives Code Status: DNR-Comfort Care - Mobility Orders Ambulate - Rehabiliation Orders Rehab Potential: Good Rehab Orders: Evaluation for Physical Therapy, Evaluation for Occupational Therapy - Diet Orders Cardiac CERTIFICATION: I certify that the transfer of the above named patient to an Extended Care Facility is necessary for the continuing treatment of the diagnosis listed. The above information is true and accurate reflection of patient's current condition. Confidential - Redisclosure prohibited without a patient's written consent.
[2017-09-02] MEDS: Furosemide 40 MG TABLET PO SCH ×2 (10:32→17:03)
[2017-09-02] MEDS: Aspirin Enteric Coated 81 MG Tablet PO SCH (10:32)
[2017-09-02] MEDS: Gabapentin 400 MG CAPSULE PO SCH ×3 (10:33→21:38)
[2017-09-02] MEDS: Levofloxacin 750 MG/150 ML 750 MG/150 ML BAG IVPB SCH (10:39)
[2017-09-02] MEDS: Apixaban 5 MG TABLET PO SCH (21:39)
[2017-09-02] MEDS: Magnesium Oxide 400 MG TABLET PO SCH (21:39)
[2017-09-02] MEDS: traZODone 50 MG TABLET PO SCH (21:40)
[2017-09-03] MEDS: Ipratropium/Albuterol Neb 3 ML IH SCH ×3 (03:47→11:06)
[2017-09-03 05:36] LABS: Basophils % 0.1 %; Eosinophils % 0.1 %; Hematocrit 39.6 % (37.5-50.1); Hemoglobin 12.8 g/dL (12.9-16.9); Immature Granulocytes % 0.7 % (0-4); Lymphocytes # 1.5 K/mcL (0.6-4.6); Lymphocytes % 8.4 %; Mean Corpuscular HGB Conc 32.3 g/dL (31.6-35.5); Mean Corpuscular Hemoglobin 33.7 pg (28.0-33.3); Mean Corpuscular Volume 104.2 fL (83.0-100.0); Mean Platelet Volume 11.5 fL (9.4-12.4); Monocytes # 1.2 K/mcL (0.0-1.3); Monocytes % 6.6 %; Neutrophils # 14.7 K/mcL (1.6-8.9); Platelet Count 171 K/mcL (140-400); Red Cell Distribution Width 13.6 % (11.5-14.5); Segmented Neutrophils % 84.1 %
[2017-09-03 05:48] LABS: BUN/Creatinine Ratio 26 (6-26); Blood Urea Nitrogen 21 mg/dL (8-23); Calcium 8.9 mg/dL (8.6-10.3); Carbon Dioxide 37 mEq/L (23-29); Chloride 101 mEq/L (98-107); Glucose 109 mg/dL (70-105); Magnesium 2.1 mg/dL (1.6-2.6); Osmolality,Calculated 296 (280-300); Potassium 3.8 mEq/L (3.5-5.1); Sodium 141 mEq/L (136-145); eGFR For African Americans > 60 (> 60); eGFR For Non-African Americans > 60 (> 60)
[2017-09-03] MEDS: Budesonide/Formoterol 160/4.5 MDI IH SCH (07:41)
[2017-09-03 07:43] VITALS: BP 112/73
--- NOTE | 2017-09-03 07:52 | Internal Med Progress Note ---
<Damien Cary - Last Filed: 09/03/17 14:12> Date of Encounter: 09/03/17 - Assessment and plan (1) CHF exacerbation Current Visit: No Status: Acute Qualifiers: Heart failure type: systolic Qualified Code(s): I50.23 - Acute on chronic systolic (congestive) heart failure (2) Elevated troponin Current Visit: No Status: Resolved (3) CAD (coronary artery disease) Current Visit: No Status: Chronic Qualifiers: Coronary Disease-Associated Artery/Lesion type: bypass graft [place] vs. transplanted heart: [place] heart Associated angina: without angina Qualified Code(s): I25.810 - Atherosclerosis of coronary artery bypass graft(s) without angina pectoris (4) COPD exacerbation Current Visit: Yes Status: Acute (5) Elevated d-dimer Current Visit: Yes Status: Acute (6) DVT prophylaxis Current Visit: Yes Status: Acute (7) Acute and chronic respiratory failure ([id number]) Current Visit: Yes Status: Chronic Qualifiers: Respiratory failure complication: hypoxia Qualified Code(s): J96.21 - Acute and chronic respiratory failure with hypoxia (8) Paroxysmal atrial fibrillation Current Visit: Yes Status: Acute (9) Hypomagnesemia Current Visit: Yes Status: Acute (10) Hypokalemia Current Visit: Yes Status: Acute - Time Spent With Patient Total time spent is greater than 50% in coordination of care (as documented) at patient's floor/unit and/or counseling patient: - Constitutional Vitals: Temp Pulse Resp BP Pulse Ox 97.8 F 70 18 112/73 100 09/03/17 07:42 09/03/17 07:42 09/03/17 11:07 09/03/17 07:42 09/03/17 11:07 Internal Medicine: Result - Labs CBC & Chem 7: 09/03/17 04:00 09/03/17 04:00 Labs: Short CBC 09/03/17 Range/Units 04:00 WBC 17.5 H (4.3-11.1) K/mcL Hgb 12.8 L (12.9-16.9) g/dL Hct 39.6 (37.5-50.1) % Plt Count 171 (140-400) K/mcL Neutrophils # 14.7 H (1.6-8.9) K/mcL BMP 09/03/17 04:00 Sodium 141 Potassium 3.8 Chloride 101 Carbon Dioxide 37 H BUN 21 Creatinine 0.80 Glucose 109 H Calcium 8.9 - ABG Interpretation ABG results: ABG ABG pH 7.49 pH Units (7.32-7.45) H 08/31/17 10:30 ABG pCO2 45 mmHg (35-45) 08/31/17 10:30 ABG pO2 81 mmHg (85-104) L 08/31/17 10:30 ABG O2 Saturation 97 % (95-98) 08/31/17 10:30 PT/INR, D-dimer PT 14.7 Seconds (9.4-12.1) H 09/02/17 04:58 Consult Discharge Plan - Plan Instructions: Prednisone (By mouth), Losartan (By mouth), Levofloxacin (By mouth), Carvedilol (By mouth), Magnesium Oxide (By mouth), Hyponatremia (DC), Chronic Obstructive Pulmonary Disease (DC), Hypomagnesemia (DC) [facility]errals: [facility] [Primary Care Provider] - Prescriptions: Carvedilol [Coreg] 12.5 mg PO BIDWM #120 tablet levoFLOXacin [Levaquin] 750 mg PO DAILY #5 tablet Losartan [Cozaar] 25 mg PO DAILY #30 tablet Magnesium Oxide [Mag-Ox] 400 mg PO BID #60 tablet predniSONE [PredniSONE] 40 mg PO DAILY #3 tablet - Attending Attestation I performed an independent interview and examine this patient. I agree with the findings, assessment, and plan of Dr. Hinds, internal medicine resident. Patient has been improving. He is diuresing well. 4.5 L urine output thus far. Please refer to full discharge summary dictated on 09/02/2017, the assessment and plan as well as follow-up has not changed. Pt is stable for discharge. Patient continues on Eliquis for anticoagulation. On this for atrial fibrillation. Patient appears to be compensated from a CHF standpoint. He will need close follow-up. Repeat BMP next week. Check daily weights. All else as outlined above. <Harvey Hinds - Last Filed: 09/03/17 14:39> Date of Encounter: 09/03/17 Time of Encounter: 07:51 - Assessment and plan (1) COPD exacerbation Current Visit: Yes Status: Acute Assessment and plan: Patient has a history of COPD. Denies any acute infectious symptoms like fevers , myalgias, productive cough. Has increased the shortness of breath. - continue Levaquin (5 days) - continue scheduled duo nebs, Symbicort, Solu-Medrol (currently 60 mg Q8 hours IVP) - Oxygen supportive treatment - BiPAP if needed - Plan to discharge today (2) CHF exacerbation Current Visit: No Status: Acute Assessment and plan: Last echo done in 2015 showed LVEF of 20%, left ventricular diastolic dysfunction, and global hypotension. On initial workup, patient did have elevated troponins which have since downtrended, as well as an elevated BNP. - Switched IV lasix to PO - Strict I and O - Fluid restriction diet after resume diet. - Continue home medication beta shala, ARB - Patient has been placed PPM and AICD Qualifiers: Heart failure type: systolic Qualified Code(s): I50.23 - Acute on chronic systolic (congestive) heart failure (3) Acute and chronic respiratory failure ([id number]) Current Visit: Yes Status: Chronic Assessment and plan: likely multifactorial due to acute COPD exacerbation, pneumonia, and acute CHF exacerbation. All plans as below. Qualifiers: Respiratory failure complication: hypoxia Qualified Code(s): J96.21 - Acute and chronic respiratory failure with hypoxia (4) CAD (coronary artery disease) Current Visit: No Status: Chronic Assessment and plan: Continue home medications. Qualifiers: Coronary Disease-Associated Artery/Lesion type: bypass graft [place] vs. transplanted heart: [place] heart Associated angina: without angina Qualified Code(s): I25.810 - Atherosclerosis of coronary artery bypass graft(s) without angina pectoris (5) Elevated troponin Current Visit: No Status: Resolved Assessment and plan: Cardiology following. Elevated troponin likely due to demand ischemia. Echo unchanged from previous with LVEF 20-25% and severely dilated left ventricle as well as hypokinetic wall motions. - Continue continuous cardiac monitoring - troponins downtrending 0.45/0.27/0.21 - Heparin discontinued and Holding Eliquis due to possible history of A. Fib but uncertain. [facility]. - Spoke with cardiology resident and agree with plan. (6) Elevated d-dimer Current Visit: Yes Status: Acute Assessment and plan: Patient has elevated d-dimer, CTA has been attempted in [facility], however, because of infiltration of contrast, the result is nondiagnostic. - VQ scan unable to be performed to patient's inability to lay fully supine - Doppler LE b/l normal, but great saphenous veins not well visualized - Cardiology will discontinue heparin for now. (7) Hypomagnesemia Current Visit: Yes Status: Resolved (8) Hypokalemia Current Visit: Yes Status: Resolved (9) DVT prophylaxis Current Visit: Yes Status: Acute Assessment and plan: SQ heparin - Time Spent With Patient Total time spent is greater than 50% in coordination of care (as documented) at patient's floor/unit and/or counseling patient: - Subjective Interval history: Patient seen and examined. Electrolyte abnormalities have normalized. Patient is now stable for discharge. Plan discharge today to [facility] once bed is available. - Constitutional Vitals: Temp Pulse Resp BP Pulse Ox 97.8 F 70 18 112/73 98 09/03/17 07:42 09/03/17 07:42 09/03/17 07:43 09/03/17 07:42 09/03/17 07:43 General appearance: Present: cooperative, A&O X 3, pleasant, no acute distress, answers questions appropriately - Head Head exam: Present: atraumatic, normocephalic - Eye Eye exam: Present: PERRL, conjuntiva pink, sclera anicteric Pupils: Present: PERRL - ENT ENT exam: Present: mucous membranes moist, normal oropharynx - Neck Neck exam general surgery: Present: supple, trachea midline. Absent: lymphadenopathy - Respiratory Respiratory exam: Present: CTAB. Absent: accessory muscle use, rales, rhonchi, wheezes - Cardiovascular Cardiovascular exam: Present: RRR, +S1, +S2. Absent: diastolic murmur, gallop, rubs, systolic murmur - GI/Abdominal GI/Abdominal exam: Present: normal bowel sounds, soft, no peritoneal signs. Absent: distended, tenderness - Extremities Exam Extremities exam: Present: warm, radial pulses palpable and symmetrical. Absent : calf tenderness, cyanotic, pedal edema - Back Exam Back exam: Absent: normal inspection, tenderness - Neurological Exam Neurological exam: Present: CN II-XII intact, oriented X3, no focal deficits. Absent: pronater drift, facial droop, speech deficit - Skin Skin exam: Present: dry, intact, warm Internal Medicine: Result - Labs CBC & Chem 7: 09/03/17 04:00 09/03/17 04:00 Labs: Short CBC 09/03/17 Range/Units 04:00 WBC 17.5 H (4.3-11.1) K/mcL Hgb 12.8 L (12.9-16.9) g/dL Hct 39.6 (37.5-50.1) % Plt Count 171 (140-400) K/mcL Neutrophils # 14.7 H (1.6-8.9) K/mcL BMP 09/03/17 04:00 Sodium 141 Potassium 3.8 Chloride 101 Carbon Dioxide 37 H BUN 21 Creatinine 0.80 Glucose 109 H Calcium 8.9 - ABG Interpretation ABG results: ABG ABG pH 7.49 pH Units (7.32-7.45) H 08/31/17 10:30 ABG pCO2 45 mmHg (35-45) 08/31/17 10:30 ABG pO2 81 mmHg (85-104) L 08/31/17 10:30 ABG O2 Saturation 97 % (95-98) 08/31/17 10:30 PT/INR, D-dimer PT 14.7 Seconds (9.4-12.1) H 09/02/17 04:58 - Pulse Oximetry Interpretation Digit-Finger Pulse Oximetry Readin (3L O2 via NC)
[2017-09-03] MEDS ORDERED: NON-FORMULARY MEDICATION 1 EACH EACH (Sildenafil Citrate [Sildenafil Citrate] 100 MG) PO PRN (07:54)
[2017-09-03] MEDS ORDERED: NON-FORMULARY MEDICATION 1 EACH EACH (Oxygen [Oxygen] 3 L) NS SCH (08:00)
[2017-09-03] MEDS ORDERED: Multivit/Ca/Min/Fe/FA 1 TAB TABLET PO SCH (09:00)
[2017-09-03] MEDS ORDERED: predniSONE 20 MG TABLET PO SCH (09:00)
[2017-09-03] MEDS ORDERED: Finasteride 5 MG TABLET PO SCH (09:00)
[2017-09-03] MEDS ORDERED: levoFLOXacin 750 MG TABLET PO SCH (09:00)
[2017-09-03] MEDS ORDERED: POTASSIUM CHLORIDE 20 MEQ PO SCH (09:00)
[2017-09-03] MEDS ORDERED: Cholecalciferol (D-3) 1,000 UNIT TABLET PO SCH (09:00)
[2017-09-03] MEDS: Apixaban 5 MG TABLET PO SCH (09:10)
[2017-09-03] MEDS: Magnesium Oxide 400 MG TABLET PO SCH (09:10)
[2017-09-03] MEDS: Gabapentin 400 MG CAPSULE PO SCH (09:10)
[2017-09-03] MEDS: Aspirin Enteric Coated 81 MG Tablet PO SCH (09:11)
[2017-09-03] MEDS: Furosemide 40 MG TABLET PO SCH (09:11)
--- NOTE | 2017-09-04 14:31 | Electrocardiograph Report ---
[address] [address] Test Date: 2017-08-31 Pat Name: Levi Duran Department: 111 Room: 2NE28 Gender: M Braddisher: : 1950 Requested By: Kal Bear Order Number: [id number] Reading MD: Carlos Nascimento Measurements Intervals [place] Rate: 64 P: NC: 0 QRS: 265 QRSD: 193 T: 100 QT: 494 QTc: 504 Interpretive Statements ELECTRONIC VENTRICULAR PACEMAKER ABNORMAL RHYTHM ECG Electronically Signed On 09-04-2017 14:30:09 EDT by Carlos Nascimento
== END 2017-09-03 14:48 | DRG 190 ==
LOC: 1NENUOBS → SUATTDRO 08-31 02:12
PROVIDERS: ADMIT Internal Medicine; ATTEND Hospitalist

== ENCOUNTER 2017-09-17 12:54 | Inpatient (IN) ==
[~2017-09-17 12:54] MED LIST: Aminoglycoside Consult 1 EACH MC ONE
--- NOTE | 2017-09-17 13:16 | Emergency Department Note ---
Disposition Clinical Impression: Weight gain, Shortness of breath, History of CHF (congestive heart failure), Acute exacerbation of CHF (congestive heart failure), Hypotension, Elevated troponin Disposition: Admitted As Inpatient Condition: Good Time of Disposition: 15:40 General Adult HPI - General Chief complaint: ED General Medical Stated complaint: Weight Gain/Pacemaker Issue Time Seen by Provider: 09/17/17 13:01 Source: EMS Limitations: no limitations Nursing Notes Reviewed: Yes Vital Signs Reviewed: Yes - History of Present Illness HPI Narrative: Patient is a 67-year-old male that presents the emergency department with a 30 pound weight gain over the past week and significant swelling. Patient states that he does have a history of heart failure. Patient denies any chest pain but does state that he has had some worsening of her shortness of breath. States that he is normally on 3-1/2 L of oxygen at home. Patient denies any increase oxygen demand at this time but does state that he is becoming more short of breath. Patient denies ever having anything like this before. Pain Scale: 0 - Related Data Home Medications Medication Instructions Recorded Confirmed Albuterol Sulfate [Albuterol 2 puff IH Q4HR 05/15/15 08/31/17 Inhaler] Atorvastatin Calcium [Lipitor] 80 mg PO DAILY 05/15/15 08/31/17 Cholecalciferol (Vitamin D3) 1,000 unit PO DAILY 05/15/15 08/31/17 [Vitamin D3] Gabapentin [Neurontin] 1,200 mg PO TID 05/15/15 08/31/17 Multivitamin [Multi-Day Vitamins] 1 tab PO QAM 05/15/15 08/31/17 Potassium Chloride [Klor-Con 20 meq PO QAM 05/15/15 08/31/17 Sprinkle] Furosemide [Lasix] 40 mg PO BID 02/05/17 08/31/17 traMADol [Ultram] 50 mg PO TID PRN 02/05/17 08/31/17 traZODone [TraZODone] 50 mg PO HS 02/05/17 08/31/17 Aspirin 81 mg PO DAILY 03/12/17 08/31/17 Budesonide/Formoterol 160/4.5 2 puff IH BIDR 03/12/17 08/31/17 [Symbicort 160/4.5] Finasteride [Proscar] 5 mg PO DAILY 10/26/17 04/16/18 Oxygen 3 l NS CONT 03/12/17 08/31/17 Tamsulosin [Flomax] 0.4 mg PO HS 03/12/17 08/31/17 Tiotropium [Spiriva] 1 puff IH DAILY 03/12/17 08/31/17 Albuterol Neb [Proventil Neb] 2.5 mg IH Q4H PRN 08/31/17 08/31/17 Apixaban [Eliquis] 5 mg PO BID 08/31/17 08/31/17 Sildenafil Citrate 100 mg PO AD PRN 08/31/17 08/31/17 Previous Rx's Medication Instructions Recorded Acetaminophen [Tylenol] 650 mg PO Q6HR PRN tablet 09/02/17 Carvedilol [Coreg] 12.5 mg PO BIDWM #120 tablet 09/02/17 Losartan [Cozaar] 25 mg PO DAILY #30 tablet 09/02/17 Magnesium Oxide [Mag-Ox] 400 mg PO BID #60 tablet 09/02/17 Omeprazole [PriLOSEC] 20 mg PO DAILY capsule. 09/02/17 levoFLOXacin [Levaquin] 750 mg PO DAILY #5 tablet 09/02/17 predniSONE [PredniSONE] 40 mg PO DAILY #3 tablet 09/02/17 Allergies Allergy/AdvReac Type Severity Reaction Status Date / Time No Known Allergies Allergy Verified 02/05/17 10:34 All systems ED: reviewed and negative except as stated. Cardiovascular: Denies: chest pain Respiratory: Reports: dyspnea Past Medical History - Past Medical History Medical history: Reports: CHF, COPD, coronary artery disease, CVA, dementia, GERD, hyperlipidemia, hypertension, myocardial infarction Surgical history: Reports: coronary bypass (CABG), pacemaker/AICD Psychiatric history: Reports: anxiety, depression - Social History Smoking Status: Former smoker Smokeless Tobacco Status: No Alcohol use: Reports: none Drug use: Reports: none Physical Exam - General Limitations: no limitations General appearance: alert, in no apparent distress - Head Head exam: atraumatic, normocephalic - Eye Eye exam: Present: normal appearance, EOMI - Neck Neck exam: Present: normal inspection, full ROM, trachea midline - Respiratory Respiratory exam: Present: other (Decreased breath sounds bilaterally) - Cardiovascular Cardiovascular exam: Present: regular rate, normal rhythm, normal heart sounds, +S1, +S2 - Abdominal Exam Abdominal exam: Present: soft, Non-Tender, normal bowel sounds - Extremities Exam Extremities exam: Present: other (Patient has 2+ pitting edema bilateral lower extremities.) - Neurological Exam Neurological exam: Present: alert, oriented X3 - Psychiatric Psychiatric exam: Present: normal affect, normal mood - Skin Skin exam: Present: warm, dry, intact Course - Reevaluation(s) Reevaluation #1: Was notified that the patient was hypotensive with a systolic blood pressure in the 60s. Upon reevaluation at bedside the patient states that he is feeling fine at this time and is not feeling lightheaded. Due to the patient being hypotensive with significant lower extremity edema and shortness of breath we will give him a small fluid bolus of 250 mL. The patient's blood pressure was rechecked with a manual cuff and the systolic was 68. Time: 13:40 Reevaluation #2: Patient's blood pressure was responsive to the first 250 mL bolus. On reevaluation the patient the patient still states that he is feeling pretty good at this time. There are no new crackles or rales present on exam. The chest x-ray does not show any significant worsening of any edema so we will give the patient in another 250 L bolus due to the patient's blood pressure being responsive to the first 250 mL bolus. Time: 14:15 Reevaluation #3: Due the patient remained hypotensive and after speaking with the ICU resident and attending they felt that it would be necessary or beneficial to have a central line placed in the patient. This was performed here in the emergency department without complications. Time: 15:06 Vital Signs Temperature 98 F 09/17/17 12:58 Pulse Rate 99 09/17/17 12:58 Respiratory Rate 20 09/17/17 12:58 Blood Pressure 87/74 09/17/17 12:58 O2 Sat by Pulse Oximetry 95 09/17/17 12:58 Temperature 98 F 09/17/17 12:58 Pulse Rate 123 09/17/17 15:29 Respiratory Rate 22 09/17/17 15:29 Blood Pressure 78/58 09/17/17 15:29 O2 Sat by Pulse Oximetry 100 09/17/17 15:29 Oxygen Delivery Oxygen Delivery Nasal Cannula Procedures - Central Line Placement Right IJ Central Line Inserted*: Yes Central Line Catheter Replacement*: No Central Line Insertion: emergent Consent Obtained: written consent Procedural Pause: verify patient name and date of , timeout performed per policy, ramon and assess the site, assemble equipment and verify supplies, perform hand hygiene Patient Placed on Monitor/Pulse Ox: Yes During the Procedure: clinician is wearing sterile gloves, cap, mask,& gown during insertion, sterile field and sterile technique are maintained, patient's face is covered with drape or mask and wearing a cap, everyone in room is wearing a mask Central Line Prep: Chlorhexidine scrub Prep the Procedure Site: apply chloraprep to the skin using a back and forth scrubbing motion, apply chloraprep for 30 seconds (upper body), 1-2 min ( femoral sites), allow prep to dry, drape the patient with a full body drape Local Anesthetic: lidocaine 1% Amount of anesthesia used (mL): 3 Ultrasound Used for Placement: Yes Central Line Lumen Inserted: triple Post Procedure: sutured in place, good blood return, all ports aspirated, flushed, capped, sterile dressing applied, guide wire removed and visualized Post Procedure X-Ray: tip of catheter in good position, no pneumothorax seen Patient Tolerated Procedure: well Complications: none Name of Clinician Inserting Central Line: Dr Jones Clinician Assisting/Completing Checklist: Dr. Joseph and Dr. Pritchard Medical Decision Making - [facility] Narrative Medical decision making narrative: Due to the patient presenting with a recent weight gain of 30 pounds over the past week and significant lower extremity swelling there is concern for possible exacerbation or worsening of the patient's congestive heart failure. We will obtain a CBC, BMP, BNP, troponin and chest x-ray and EKG. The patient' s troponin is mildly elevated at 0.08 however this appears to be chronic for the patient. The chest x-ray does not show any acute worsening of the pulmonary edema. EKG does not show any evidence of STEMI. The patient does appear to have some acute kidney injury and an elevated creatinine of 1.49. The patient does have an elevated white count of 12.8. The patient also does appear to have a chronic anemia. BNP is elevated at 686. We have spoken with the ICU resident as well as a the ICU attending and they will be admitted to the ICU for hypotension and exacerbation of CHF. - Medical Records Medical records reviewed: Yes I reviewed the patient's medical records. - Lab Data Lab results reviewed: Yes I reviewed the patient's lab results. Result diagrams: 09/17/17 13:35 09/17/17 13:35 Lab Results 09/17/17 09/17/17 09/17/17 Range/Units 13:35 13:35 13:35 WBC 12.8 H (4.3-11.1) K/mcL RBC 3.35 L (4.19-5.50) M/mcL Hgb 11.1 L (12.9-16.9) g/dL Hct 35.3 L (37.5-50.1) % MCV 105.4 H (83.0-100.0) fL MCH 33.1 (28.0-33.3) pg MCHC 31.4 L (31.6-35.5) g/dL RDW 14.1 (11.5-14.5) % Plt Count 134 L (140-400) K/mcL MPV 11.1 (9.4-12.4) fL Immature Gran % 1.1 (0-4) % Seg Neutrophils % 79.2 % Lymphocytes % 9.6 % Monocytes % 9.5 % Eosinophils % 0.4 % Basophils % 0.2 % Neutrophils # 10.1 H (1.6-8.9) K/mcL Lymphocytes # 1.2 (0.6-4.6) K/mcL Monocytes # 1.2 (0.0-1.3) K/mcL Eosinophils # 0.1 (0.0-0.6) K/mcL Basophils # 0.0 (0.0-0.2) K/mcL Sodium 137 (136-145) mEq/L Potassium 5.4 H (3.5-5.1) mEq/L Chloride 98 (98-107) mEq/L Carbon Dioxide 39 H (23-29) mEq/L BUN 44 H (8-23) mg/dL Creatinine 1.49 H (0.70-1.30) mg/dL Est GFR ( Amer) 57 L (> 60) Est GFR (Non-Af Amer) 47 L (> 60) BUN/Creatinine Ratio 30 H (6-26) Glucose 112 H (70-105) mg/dL Calculated Osmolality 296 (280-300) Calcium 9.1 (8.6-10.3) mg/dL Troponin I 0.08 H* (< 0.04) ng/mL B-Natriuretic Peptide 686 H (Less than 100) pg/mL - Radiology Data Radiology results reviewed: Yes I reviewed the patient's radiology results. Chest X-Ray 09/17/17 13:08 IMPRESSION: Unchanged findings of mild interstitial pulmonary edema. D/ / 09/17/2017 13:45:21 Marvin Carlson MD / [place] Interpreting Provider: Marvin Carlson MD - EKG Data EKG #1 EKG attestation: Yes I reviewed and interpreted this EKG. EKG results narrative: EKG shows a electronically paced rhythm at a rate of 84 bpm, QRS duration of 165 , QTC of 445. There is no evidence of STEMI on this EKG.
[2017-09-17] MEDS ORDERED: 0.9 % Sodium Chloride 250 ML IVC ONE ×2 (13:41→14:16)
[2017-09-17 13:49] LABS: Basophils % 0.2 %; Eosinophils # 0.1 K/mcL (0.0-0.6); Eosinophils % 0.4 %; Hematocrit 35.3 % (37.5-50.1); Hemoglobin 11.1 g/dL (12.9-16.9); Immature Granulocytes % 1.1 % (0-4); Lymphocytes # 1.2 K/mcL (0.6-4.6); Lymphocytes % 9.6 %; Mean Corpuscular HGB Conc 31.4 g/dL (31.6-35.5); Mean Corpuscular Hemoglobin 33.1 pg (28.0-33.3); Mean Corpuscular Volume 105.4 fL (83.0-100.0); Mean Platelet Volume 11.1 fL (9.4-12.4); Monocytes # 1.2 K/mcL (0.0-1.3); Monocytes % 9.5 %; Neutrophils # 10.1 K/mcL (1.6-8.9); Platelet Count 134 K/mcL (140-400); Red Blood Count 3.35 M/mcL (4.19-5.50); Red Cell Distribution Width 14.1 % (11.5-14.5); Segmented Neutrophils % 79.2 %
[2017-09-17 14:13] LABS: Calcium 9.1 mg/dL (8.6-10.3); Potassium 5.4 mEq/L (3.5-5.1)
--- NOTE | 2017-09-17 14:15 | Emergency Department Note ---
Disposition Clinical Impression: Weight gain, Shortness of breath, History of CHF (congestive heart failure) Acute exacerbation of CHF (congestive heart failure) Qualifiers: Heart failure type: unspecified Qualified Code(s): I50.9 - Heart failure, unspecified Hypotension Qualifiers: Hypotension type: unspecified hypotension type Qualified Code(s): I95.9 - Hypotension, unspecified Disposition: Admitted As Inpatient Condition: Good [facility]: [facility]Primary Care Provider[facility] - Forms: ED Satisfaction Letter, Work/School Release General Adult HPI - General Chief complaint: ED General Medical Stated complaint: Weight Gain/Pacemaker Issue Time Seen by Provider: 09/17/17 13:01 Source: EMS Limitations: no limitations - History of Present Illness Pain Scale: 0 - Related Data Home Medications Medication Instructions Recorded Confirmed Albuterol Sulfate [Albuterol 2 puff IH Q4HR 05/15/15 08/31/17 Inhaler] Atorvastatin Calcium [Lipitor] 80 mg PO DAILY 05/15/15 08/31/17 Cholecalciferol (Vitamin D3) 1,000 unit PO DAILY 05/15/15 08/31/17 [Vitamin D3] Gabapentin [Neurontin] 1,200 mg PO TID 05/15/15 08/31/17 Multivitamin [Multi-Day Vitamins] 1 tab PO QAM 05/15/15 08/31/17 Potassium Chloride [Klor-Con 20 meq PO QAM 05/15/15 08/31/17 Sprinkle] Furosemide [Lasix] 40 mg PO BID 02/05/17 08/31/17 traMADol [Ultram] 50 mg PO TID PRN 02/05/17 08/31/17 traZODone [TraZODone] 50 mg PO HS 02/05/17 08/31/17 Aspirin 81 mg PO DAILY 03/12/17 08/31/17 Budesonide/Formoterol 160/4.5 2 puff IH BIDR 03/12/17 08/31/17 [Symbicort 160/4.5] Finasteride [Proscar] 5 mg PO DAILY 03/12/17 08/31/17 Oxygen 3 l NS CONT 03/12/17 08/31/17 Tamsulosin [Flomax] 0.4 mg PO HS 03/12/17 08/31/17 Tiotropium [Spiriva] 1 puff IH DAILY 03/12/17 08/31/17 Albuterol Neb [Proventil Neb] 2.5 mg IH Q4H PRN 08/31/17 08/31/17 Apixaban [Eliquis] 5 mg PO BID 08/31/17 08/31/17 Sildenafil Citrate 100 mg PO AD PRN 08/31/17 08/31/17 Previous Rx's Medication Instructions Recorded Acetaminophen [Tylenol] 650 mg PO Q6HR PRN tablet 09/02/17 Carvedilol [Coreg] 12.5 mg PO BIDWM #120 tablet 09/02/17 Losartan [Cozaar] 25 mg PO DAILY #30 tablet 09/02/17 Magnesium Oxide [Mag-Ox] 400 mg PO BID #60 tablet 09/02/17 Omeprazole [PriLOSEC] 20 mg PO DAILY capsule. 09/02/17 levoFLOXacin [Levaquin] 750 mg PO DAILY #5 tablet 09/02/17 predniSONE [PredniSONE] 40 mg PO DAILY #3 tablet 09/02/17 Allergies Allergy/AdvReac Type Severity Reaction Status Date / Time No Known Allergies Allergy Verified 02/05/17 10:34 Cardiovascular: Denies: chest pain Respiratory: Reports: dyspnea Past Medical History - Past Medical History Medical history: Reports: CHF, COPD, coronary artery disease, CVA, dementia, GERD, hyperlipidemia, hypertension, myocardial infarction Surgical history: Reports: coronary bypass (CABG), pacemaker/AICD Psychiatric history: Reports: anxiety, depression - Social History Smoking Status: Former smoker Smokeless Tobacco Status: No Alcohol use: Reports: none Drug use: Reports: none Physical Exam - General Limitations: no limitations General appearance: alert, in no apparent distress Course - Reevaluation(s) Reevaluation #1: ATTESTATION NOTE I examined this patient and my medical decision-making was reviewed with the TICKET BROKER/PA/Advanced Practice Nurse/Resident Physician. I agree with the documented findings, disposition and treatment plan as described except to the extent set forth below. ED attending note: Patient seen with emergency medicine resident Dr. Sebastian Jones. We independently evaluated the patient. We independently had face-to -face contact with the patient. Please see a copy of his note for details of the history and physical, evaluation, management and disposition of this emergency Department patient. Briefly: 67-year-old male resident [facility] for 30 pound weight gain over the past week. Increasing fatigue and shortness of breath arrives hypotension tensive at 61/33 was given a 250 mL saline bolus systolic 86 patient feeling a bit better EKG shows no acute ischemic changes. Patient getting screening labs chest x-ray with admission anticipated for hypertension and fluid retention CHF exacerbation. Provided 45 minutes critical care service for this patient. Admission disposition pending Time: 14:14 Vital Signs Temperature 98 F 09/17/17 12:58 Pulse Rate 99 09/17/17 12:58 Respiratory Rate 20 09/17/17 12:58 Blood Pressure 87/74 09/17/17 12:58 O2 Sat by Pulse Oximetry 95 09/17/17 12:58 Temperature 98 F 09/17/17 12:58 Pulse Rate 94 09/17/17 13:40 Respiratory Rate 16 09/17/17 13:40 Blood Pressure 61/33 09/17/17 13:40 O2 Sat by Pulse Oximetry 100 09/17/17 13:40 Oxygen Delivery Oxygen Delivery Nasal Cannula Medical Decision Making - Lab Data Result diagrams: 09/17/17 13:35 09/17/17 13:35 Lab Results 09/17/17 09/17/17 Range/Units 13:35 13:35 WBC 12.8 H (4.3-11.1) K/mcL RBC 3.35 L (4.19-5.50) M/mcL Hgb 11.1 L (12.9-16.9) g/dL Hct 35.3 L (37.5-50.1) % MCV 105.4 H (83.0-100.0) fL MCH 33.1 (28.0-33.3) pg MCHC 31.4 L (31.6-35.5) g/dL RDW 14.1 (11.5-14.5) % Plt Count 134 L (140-400) K/mcL MPV 11.1 (9.4-12.4) fL Immature Gran % 1.1 (0-4) % Seg Neutrophils % 79.2 % Lymphocytes % 9.6 % Monocytes % 9.5 % Eosinophils % 0.4 % Basophils % 0.2 % Neutrophils # 10.1 H (1.6-8.9) K/mcL Lymphocytes # 1.2 (0.6-4.6) K/mcL Monocytes # 1.2 (0.0-1.3) K/mcL Eosinophils # 0.1 (0.0-0.6) K/mcL Basophils # 0.0 (0.0-0.2) K/mcL Sodium 137 (136-145) mEq/L Potassium 5.4 H (3.5-5.1) mEq/L Chloride 98 (98-107) mEq/L Carbon Dioxide 39 H (23-29) mEq/L BUN 44 H (8-23) mg/dL Creatinine 1.49 H (0.70-1.30) mg/dL Est GFR ( Amer) 57 L (> 60) Est GFR (Non-Af Amer) 47 L (> 60) BUN/Creatinine Ratio 30 H (6-26) Glucose 112 H (70-105) mg/dL Calculated Osmolality 296 (280-300) Calcium 9.1 (8.6-10.3) mg/dL
[2017-09-17 14:17] LABS: Troponin I 0.08 ng/mL (< 0.04)
[2017-09-17] MEDS ORDERED: Acetaminophen 325 MG TABLET PO PRN (15:00)
[2017-09-17] MEDS ORDERED: Naloxone 0.4 MG/ML INJ IVP PRN (15:00)
[2017-09-17] MEDS ORDERED: *HR* HYDROcodone/Acet 5/325 mg TABLET PO PRN (15:00)
[2017-09-17] MEDS ORDERED: Dextrose Gel 15 GM/37.5 ML TUBE PO PRN ×2 (15:04)
[2017-09-17] MEDS ORDERED: D5% in Water 1,000 ML IVC PRN (15:04)
[2017-09-17] MEDS ORDERED: *HR* Dextrose 50 % in Water (Syg) 50 ML SYRINGE IVP PRN (15:04)
--- NOTE | 2017-09-17 15:06 | Pulmonology History & Physical ---
<Kyler Joseph - Last Filed: 09/17/17 15:52> Date of Encounter: 09/17/17 Time of Encounter: 15:06 Assessment and Plan (1) Cardiogenic shock Current visit: Yes Status: Acute Previous echo 08/31/17 demonstrates LVEF 20-25% with severe dilated left ventricle with global LV systolic dysfunction. Presents on 09/17/17 volume overloaded, dyspnea and hypotensive. Initial brief response to IV fluids. EKG with ventricularly paced rhythm without ischemic findings. Troponin 0.08. Chest pain-free. In the setting of hypotension and CHERYL. Continue Levophed for cardiogenic shock. Goal MAP >65. Obtain blood cultures, lactate. Begin broad spectrum antibiotics vancomycin, zosyn with de-escalation as guided by culture results. Continuous telemetry. Serial troponins. (2) Elevated troponin Current visit: Yes Status: Acute Troponin 0.08 EKG w/o ischemic features In the setting of shock and CHERYL Serial Troponins Q6H (3) Essential hypertension Current visit: No Status: Chronic Hold antihypertensives in the setting of shock (4) CHERYL (acute kidney injury) Current visit: Yes Status: Acute BUN 44, SCr 1.49 In the setting of hypoperfused state Hold lasix as of now Repeat bmp daily Avoid nephrotoxic agents Renal dose vancomycin (5) Paroxysmal atrial fibrillation Current visit: No Status: Chronic Previously documented hx of Afib Continue Eliquis Hold beta shala in the setting of shock (6) COPD (chronic obstructive pulmonary disease) Current visit: No Status: Chronic Supplemental O2 3L continuous Continuous pulse ox Home bronchodilators ordered Qualifiers: COPD type: emphysema Emphysema type: panlobular Qualified Code(s): J43.1 - Panlobular emphysema (7) Diabetes Current visit: No Status: Chronic SSI coverage Qualifiers: Diabetes mellitus type: type 2 Diabetes mellitus jail insulin use: unspecified jail insulin use status Diabetes mellitus complication status : with neurologic complications Diabetes mellitus complication detail: with polyneuropathy Qualified Code(s): E11.42 - Type 2 diabetes mellitus with diabetic polyneuropathy (8) Weight gain Current visit: Yes Status: Acute 15kg weight gain since 08/31/17 volume overload 2/2 CHF (9) GERD (gastroesophageal reflux disease) Current visit: No Status: Chronic Continue PPI Qualifiers: Esophagitis presence: esophagitis presence not specified Qualified Code(s) : K21.9 - Gastro-esophageal reflux disease without esophagitis (10) DVT prophylaxis Current visit: No Status: Acute On Eliquis History of Present Illness Chief complaint: Volume overload, cardiogenic shock HPI: Mr. Duran is a 67 year old male with a past medical history of congestive heart failure, CAD status post CABG, hypertension, diabetes, COPD oxygen dependent 3 L continuous who presented to the emergency department on 09/17/17 via EMS with a chief complaint of edema. Patient reports that his nurse was concerned today because of how swollen his legs were. He remarks that he has had some shortness of breath. He denies any chest pain, diaphoresis, nausea, vomiting, syncope or near syncope. Reports a 30 pound weight gain in the last few weeks. Emergency department workup included an EKG which demonstrated a ventricularly paced rhythm without ischemic findings. Chest x-ray was stable without evidence of overt pulmonary congestion or pleural effusion. Leukocytosis 12.8, hemoglobin stable at 11.1. Acute kidney injury with a creatinine of 1.49. Troponin 0.08. BNP 686. He presented hypotensive down to 60s/30s. He was volume challenged with 250ml 2 with a transient response. After this the decision was made to place a central line and began inotropic support with Levophed. Patient seen and examined in bed 15 of the emergency department. He continues to voice lower extremity swelling as well as dyspnea. He appears in mild respiratory distress however no increased requirement of his baseline oxygen supplementation. The patient elects for full code at this time. Past Med Surg Social Fam HX - Past Medical History Attestation: Yes The following information was validated with the patient. Source: patient, old records reviewed Medical history: CHF, COPD, coronary artery disease, CVA, dementia, GERD, hyperlipidemia, hypertension, myocardial infarction Psychiatric history: anxiety, depression - Past Surgical History Surgical History: coronary bypass (CABG), pacemaker/AICD - Social History Smoking Status: Former smoker Smokeless Tobacco Status: No Alcohol use: none Drug use: none - Family History Father Hx Family Cardiac Disorders: Yes Medications and Allergies Albuterol Sulfate [Albuterol Inhaler] 2 puff IH Q4HR 05/15/15 [History] Atorvastatin Calcium [Lipitor] 80 mg PO DAILY 05/15/15 [History] Cholecalciferol (Vitamin D3) [Vitamin D3] 1,000 unit PO DAILY 05/15/15 [History] Gabapentin [Neurontin] 1,200 mg PO TID 05/15/15 [History] Multivitamin [Multi-Day Vitamins] 1 tab PO QAM 05/15/15 [History] Furosemide [Lasix] 40 mg PO BID 02/05/17 [History] traZODone [TraZODone] 50 mg PO HS 02/05/17 [History] Aspirin 81 mg PO DAILY 03/12/17 [History] Budesonide/Formoterol 160/4.5 [Symbicort 160/4.5] 2 puff IH BIDR 03/12/17 [ History] Oxygen 3 l NS CONT 03/12/17 [History] Tamsulosin [Flomax] 0.4 mg PO HS 03/12/17 [History] Tiotropium [Spiriva] 1 puff IH DAILY 03/12/17 [History] Albuterol Neb [Proventil Neb] 2.5 mg IH Q4H PRN 08/31/17 [History] Apixaban [Eliquis] 5 mg PO BID 08/31/17 [History] Sildenafil Citrate 100 mg PO AD PRN 08/31/17 [History] Acetaminophen [Tylenol] 650 mg PO Q6HR PRN tablet 09/02/17 [Rx] Magnesium Oxide [Mag-Ox] 400 mg PO BID #60 tablet 09/02/17 [Rx] Carvedilol 12.5 mg PO BID 09/17/17 [History] Finasteride [Proscar] 5 mg PO DAILY 09/17/17 [History] LORazepam [Ativan] 0.25 mg PO TID PRN 09/17/17 [History] Losartan [Cozaar] 25 mg PO DAILY 09/17/17 [History] Nicotine Patch [Nicoderm] 21 mg TD DAILY 09/17/17 [History] Omeprazole [PriLOSEC] 20 mg PO DAILY 09/17/17 [History] Potassium Chloride [K-Tab ER] 20 meq PO QAM 09/17/17 [History] Tramadol HCl [Ultram] 50 mg PO TID PRN 09/17/17 [History] 3 Allergy/AdvReac Type Severity Reaction Status Date / Time No Known Allergies Allergy Verified 02/05/17 10:34 All Systems: The remainder of the systems were reviewed and are negative - Constitutional Constitutional: as per HPI - EENT Eyes: as per HPI Ears: as per HPI Nose, mouth and throat: as per HPI - Cardiovascular Cardiovascular: as per HPI - Respiratory Respiratory: as per HPI - Gastrointestinal Gastrointestinal: as per HPI - Genitourinary Genitourinary: as per HPI - Integumentary Integumentary: as per HPI - Neurological Neurological: as per HPI - Psychiatric Psychiatric: as per HPI - Endocrine Endocrine: as per HPI - Hematologic/Lymphatic Hematologic/Lymphatic: as per HPI - Allergic/Immunologic Allergic/Immunologic: as per HPI Physical Examination Vital Signs: Vital Signs, Last 4 Hours Temp Pulse Resp BP Pulse Ox 09/17/17 14:19 100 20 89/70 100 09/17/17 13:40 94 16 61/33 100 09/17/17 13:27 95 09/17/17 12:58 98 F 99 20 87/74 95 General appearance: no acute distress Eyes: nonicteric ENT: oropharynx moist Effort: mildly labored Auscultation: bilateral: diminished breath sounds (Bibasilar) Cardiovascular: regular rate and rhythm Gastrointestinal: soft, non-tender, non-distended Integumentary: normal Extremities: no cyanosis, other (3+ bilateral lower extremity pitting edema.) Musculoskeletal: no deformities normal mental status, non-focal exam Results - Laboratory Findings CBC and BMP: 09/17/17 13:35 09/17/17 13:35 Abnormal lab findings: Abnormal lab results WBC 12.8 K/mcL (4.3-11.1) H 09/17/17 13:35 RBC 3.35 M/mcL (4.19-5.50) L 09/17/17 13:35 Hgb 11.1 g/dL (12.9-16.9) L 09/17/17 13:35 Hct 35.3 % (37.5-50.1) L 09/17/17 13:35 MCV 105.4 fL (83.0-100.0) H 09/17/17 13:35 MCHC 31.4 g/dL (31.6-35.5) L 09/17/17 13:35 Plt Count 134 K/mcL (140-400) L 09/17/17 13:35 Neutrophils # 10.1 K/mcL (1.6-8.9) H 09/17/17 13:35 Potassium 5.4 mEq/L (3.5-5.1) H 09/17/17 13:35 Carbon Dioxide 39 mEq/L (23-29) H 09/17/17 13:35 BUN 44 mg/dL (8-23) H 09/17/17 13:35 Creatinine 1.49 mg/dL (0.70-1.30) H 09/17/17 13:35 Est GFR ( Amer) 57 (> 60) L 09/17/17 13:35 Est GFR (Non-Af Amer) 47 (> 60) L 09/17/17 13:35 BUN/Creatinine Ratio 30 (6-26) H 09/17/17 13:35 Glucose 112 mg/dL (70-105) H 09/17/17 13:35 Troponin I 0.08 ng/mL (< 0.04) H* 09/17/17 13:35 B-Natriuretic Peptide 686 pg/mL (Less than 100) H 09/17/17 13:35 - Diagnostic Findings Chest x-ray: report reviewed, image reviewed <Ravindra Love S - Last Filed: 09/17/17 23:04> Date of Encounter: 09/17/17 History of Present Illness HPI: Mr. Duran is a 67 year old male All Systems: The remainder of the systems were reviewed and are negative Physical Examination Vital Signs: Vital Signs, Last 4 Hours Temp Pulse Resp BP Pulse Ox 09/17/17 22:00 60 18 95 09/17/17 21:00 59 24 97 09/17/17 20:40 96.8 F L 09/17/17 20:15 15 78/52 100 09/17/17 20:00 59 17 100 09/17/17 19:00 94 16 92/48 91 Results - Laboratory Findings CBC and BMP: 09/17/17 13:35 09/17/17 13:35 ABG ABG pH 7.36 pH Units (7.32-7.45) 09/17/17 19:57 ABG pCO2 58 mmHg (35-45) H 09/17/17 19:57 ABG pO2 184 mmHg (85-104) H D 09/17/17 19:57 ABG O2 Saturation 100 % (95-98) H 09/17/17 19:57 Abnormal lab findings: Abnormal lab results WBC 12.8 K/mcL (4.3-11.1) H 09/17/17 13:35 RBC 3.35 M/mcL (4.19-5.50) L 09/17/17 13:35 Hgb 11.1 g/dL (12.9-16.9) L 09/17/17 13:35 Hct 35.3 % (37.5-50.1) L 09/17/17 13:35 MCV 105.4 fL (83.0-100.0) H 09/17/17 13:35 MCHC 31.4 g/dL (31.6-35.5) L 09/17/17 13:35 Plt Count 134 K/mcL (140-400) L 09/17/17 13:35 Neutrophils # 10.1 K/mcL (1.6-8.9) H 09/17/17 13:35 ABG pCO2 58 mmHg (35-45) H 09/17/17 19:57 ABG pO2 184 mmHg (85-104) H D 09/17/17 19:57 ABG HCO3 33 mEq/L (21-27) H 09/17/17 19:57 ABG Total CO2 35 mEq/L (20-26) H 09/17/17 19:57 ABG O2 Saturation 100 % (95-98) H 09/17/17 19:57 ABG Base Excess 6 mEq/L (-2 to 3) H 09/17/17 19:57 Potassium 5.4 mEq/L (3.5-5.1) H 09/17/17 13:35 Carbon Dioxide 39 mEq/L (23-29) H 09/17/17 13:35 BUN 44 mg/dL (8-23) H 09/17/17 13:35 Creatinine 1.49 mg/dL (0.70-1.30) H 09/17/17 13:35 Est GFR ( Amer) 57 (> 60) L 09/17/17 13:35 Est GFR (Non-Af Amer) 47 (> 60) L 09/17/17 13:35 BUN/Creatinine Ratio 30 (6-26) H 09/17/17 13:35 Glucose 112 mg/dL (70-105) H 09/17/17 13:35 Troponin I 0.11 ng/mL (< 0.04) H* 09/17/17 19:35 B-Natriuretic Peptide 686 pg/mL (Less than 100) H 09/17/17 13:35 - Attending Attestation I saw and evaluated this patient and my medical decision-making was reviewed with the Resident Physician. I agree with the documented findings, disposition and treatment plan as described except to the extent set forth below. We independently had [id number]-[id number] contact with the patient I spent 40 minutes of Critical Care time with this patient. It involved decision making of high complexity to assess, manipulate, and support vital organ system failure and/or to prevent further life threatening deterioration of the patient's condition. The time involved in the performance of separately reportable procedures was not counted toward critical care time. Patient seen and examined at bedside Labs, radiology, chart personally reviewed. Management was reviewed during multidisciplinary critical care rounds. BANQUET STEWARD: Patient with some lethargy most likely due to toxic /metabolic encephalopathy , are due to cerebral hypoperfusion secondary to hypotension Pulm: Patient has acceptable and oxygenation and ventilation , With the background of cardiogenic shock will start her on BIPAP Cards: Patient looks fluid overload but with hypotension the last ECHO showed EF of 20% started on Levophed had some runs of V TACH , cardiology recommended Dopamine which lead to lot V tach runs with hemodynamic stability got converted with 100 J of Cardioversion worked well will start on Levophed and Amiodarone FEN-GI:NPO Renal:CHERYL secondary to poor cardiac output ID:Valenzuela culture . To start on empiric broad spectrum antibiotics Heme/Onc: Labs reviewed Endo: Glucose Monitored Integ/MSK: Skin Care per routine ICU Nursing Protocol to prevent ulcers. Lines: All lines examined without evidence of infection : Dispo: Critically ill high chance of cardiorespiratory arrest . CODE: Family according to patient wishes changed the code status DNRCCA -DNI
[2017-09-17] MEDS: Norepinephrine 4 MG in D5% in Water 250 ML IVC SCH ×2 (15:30→21:08)
[2017-09-17] MEDS: Piperacillin/Tazobactam 3.375 GM in 0.9 % Sodium Chloride Mini Bag 100 ML IVPB SCH (16:05)
[2017-09-17 17:01] LABS: ABG Base Excess 7 mEq/L (-2 to 3); ABG HCO3 35 mEq/L (21-27); ABG Oxygen Saturation 28 % (95-98); ABG PCO2 72 mmHg (35-45); ABG PO2 21 mmHg (85-104); ABG TCO2 37 mEq/L (20-26)
[2017-09-17] MEDS ORDERED: 0.9 % Sodium Chloride 500 ML ONE (17:23)
--- NOTE | 2017-09-17 17:51 | Procedure Note ---
<Kyler Joseph - Last Filed: 09/17/17 17:49> Date of procedure: 09/17/17 Pre-op diagnosis: Hemodynamic instability Post-op diagnosis: same Procedure: Arterial line placement Patient prepped and draped in usual sterile fashion. Ultrasound utilized to visualize a pulsatile right radial artery. Under direct ultrasound guidance the right radial artery was punctured on first attempt with noted pulsatile flow from the needle hub. Guidewire was advanced without meeting resistance. Needle removed over the wire an ultrasound utilized to confirm interarterial placement. Catheter placed over the guidewire and introduced without meeting resistance. Guidewire removed noted to have pulsatile flow from the catheter. Connected and noted to have arterial waveform on the monitor. Sutured into place with 2 simple interrupted sutures. Dressing applied. No complications. The attending Dr. Love was present and available throughout the procedure. Surgeon: Kyler Joseph Was there an assistant corporation counsel present: Yes Car Unloader Helper: Ravindra Love Estimated blood loss (cc): 5 Specimen: none Pathology: none sent Condition: stable Disposition: ICU <Ravindra Love - Last Filed: 09/17/17 22:43> Procedure: I was present during the entire procedure assisted in critical portions of the procedure .
[2017-09-17] MEDS ORDERED: Amiodarone Premix 150 MG/100 ML BAG IVPB ONE ×2 (18:04→18:08)
[2017-09-17] MEDS ORDERED: Amiodarone Premix 360 MG/200 ML BAG IVC ONE ×2 (18:05→18:08)
--- NOTE | 2017-09-17 18:07 | Event Note ---
Date of Encounter: 09/17/17 Time of Encounter: 18:00 Spoke with Patient in presence of POA , patient wants to be as DNR -DNI
[2017-09-17] MEDS ORDERED: Amiodarone Premix 360 MG/200 ML BAG IVC SCH (18:15)
[2017-09-17] MEDS ORDERED: *HR* Midazolam HCl 2 MG/2 ML VIAL ONE (18:18)
[2017-09-17] MEDS: Insulin LISPRO 300 UNITS/3 ML VIAL SQ SCH (18:46)
[2017-09-17] MEDS ORDERED: *HR* Midazolam HCl 2 MG/2 ML VIAL IVP ONE (18:47)
[2017-09-17 20:00] LABS: ABG Base Excess 6 mEq/L (-2 to 3); ABG HCO3 33 mEq/L (21-27); ABG Oxygen Saturation 100 % (95-98); ABG PCO2 58 mmHg (35-45); ABG PH 7.36 pH Units (7.32-7.45); ABG PO2 184 mmHg (85-104); ABG TCO2 35 mEq/L (20-26); Blood Gas Modality BiLevel; Blood Gas PEEP 6 cm H2O
[2017-09-17] MEDS ORDERED: Apixaban 5 MG TABLET PO SCH (21:00)
[2017-09-17] MEDS ORDERED: Gabapentin 400 MG CAPSULE PO SCH (21:00)
[2017-09-17] MEDS ORDERED: Budesonide/Formoterol 160/4.5 MDI IH SCH (22:00)
[2017-09-17] MEDS: Phenylephrine 10 MG in D5% in Water 250 ML IVC SCH (23:00)
[2017-09-17] MEDS ORDERED: Norepinephrine 8 MG in D5% in Water 500 ML IVC SCH (23:30)
[2017-09-18] MEDS ORDERED: Ipratropium/Albuterol Neb 3 ML ONE (00:18)
[2017-09-18] MEDS ORDERED: Albuterol 2.5 MG/3 ML NEBULIZER ONE (00:20)
[2017-09-18] MEDS: Albuterol 2.5 MG/3 ML NEBULIZER IH SCH ×2 (00:23→03:18)
[2017-09-18] MEDS: Insulin LISPRO 300 UNITS/3 ML VIAL SQ SCH (00:30)
[2017-09-18] MEDS: Piperacillin/Tazobactam 3.375 GM in 0.9 % Sodium Chloride Mini Bag 100 ML IVPB SCH (00:33)
[2017-09-18] MEDS: Phenylephrine 10 MG in D5% in Water 250 ML IVC SCH (02:02)
[2017-09-18] MEDS ORDERED: Vasopressin 40 UNIT in D5% in Water 100 ML IV SCH (02:30)
[2017-09-18] MEDS ORDERED: Phenylephrine 50 MG in D5% in Water 250 ML IVC SCH (03:15)
[2017-09-18] MEDS ORDERED: Phenylephrine 20 MG in D5% in Water 250 ML IVC SCH (03:15)
[2017-09-18] MEDS ORDERED: *HR* LORazepam 2 MG/ML VIAL IVP PRN (03:52)
[2017-09-18] MEDS ORDERED: *HR* FentaNYL (PF) 100 MCG/2 ML VIAL IVP PRN (03:53)
[2017-09-18] MEDS ORDERED: *HR* FentaNYL (PF) 100 MCG/2 ML VIAL ONE (03:55)
[2017-09-18] MEDS ORDERED: *HR* LORazepam 2 MG/ML VIAL ONE (03:56)
[2017-09-18 04:35] LABS: Basophils # 0.1 K/mcL (0.0-0.2); Basophils % 0.3 %; Eosinophils % 0.1 %; Hematocrit 39.8 % (37.5-50.1); Hemoglobin 12.3 g/dL (12.9-16.9); Immature Granulocytes % 3.1 % (0-4); Lymphocytes # 0.9 K/mcL (0.6-4.6); Lymphocytes % 5.2 %; Mean Corpuscular HGB Conc 30.9 g/dL (31.6-35.5); Mean Corpuscular Hemoglobin 32.6 pg (28.0-33.3); Mean Corpuscular Volume 105.6 fL (83.0-100.0); Monocytes # 2.4 K/mcL (0.0-1.3); Monocytes % 13.7 %; Neutrophils # 13.6 K/mcL (1.6-8.9); Nucleated Red Blood Cells 0.2 /100 WBC (0); Platelet Count 111 K/mcL (140-400); Red Blood Count 3.77 M/mcL (4.19-5.50); Red Cell Distribution Width 14.1 % (11.5-14.5); Segmented Neutrophils % 77.6 %
[2017-09-18 05:00] LABS: Calcium 7.9 mg/dL (8.6-10.3); Potassium 7.1 mEq/L (3.5-5.1)
[2017-09-18 06:09] VITALS: BP 63/48
--- NOTE | 2017-09-18 06:22 | Electrocardiograph Report ---
[place] [facility] Test Date: 2017-09-17 Pat Name: Levi Duran Department: 102 Room: [facility] Gender: M It Help Desk Manager: : [id number] Requested By: [id number] Order Number: [id number] Reading MD: Guerrero Nevarez Measurements Intervals [place] Rate: 84 P: AL: 0 QRS: 261 QRSD: 165 T: 104 QT: 404 QTc: 445 Interpretive Statements ELECTRONIC VENTRICULAR PACEMAKER ABNORMAL RHYTHM ECG Electronically Signed On 09-18-2017 6:20:44 EDT by Guerrero Nevarez
--- NOTE | 2017-09-18 07:29 | Event Note ---
Date of Encounter: 09/18/17 Time of Encounter: 04:19 patient was admitted with acute CHF and cardiogenic shock, has been on multiple pressors including Levophed and Phenylephrine, unable to maintain MAP on arterial line monitor. He had oliguria, became more dyspneic, could not tolerate BiPAp due to anxiety. Discussed with patient and family at bedside, wished to change Code status to DNR-CC, ordered Ativan and Fentanyl PRN; patient was subsequently noted to be apneic, with no heart sounds, flat line on Telemetry, was pronounced at 0419 today.
[2017-09-18] MEDS ORDERED: Tiotropium 18 MCG inhalation IH SCH (09:00)
[2017-09-18] MEDS ORDERED: Aspirin 81 MG TAB.CHEW PO SCH (09:00)
[2017-09-18] MEDS ORDERED: Cholecalciferol (D-3) 1,000 UNIT TABLET PO SCH (09:00)
--- NOTE | 2017-09-18 13:37 | Death Note ---
Discharge Sum: Summary - Date and Time Date of admission: 09/17/17 15:33 Date of : 09/18/17 Time of : 04:19 - Summary Details: 67 year old male with past medical history significant for systolic heart failure comes with acute on chronic systolic heart failure with hypotension found patient in cardiogenic shock started on Levophed developed ventricular arrhythmias cardiology was consulted recommended Dopamine was tried with patient developed ventricular tachycardia with hemodynamic stability needed to be cardioverted then he was started on levophed ended needing more phenylephrine with multiple pressors with respiratory decompensation patient could not tolerate BIPAP . Family according to patient wishes made him DNRCC . Patient at 4:19. - Additional Data Confirmation of as documented by pronouncing clinician: no pulse, no respirations, no heart sounds, pupils fixed and dilated Family: at bedside Attending/PCP notified?: No Attending physician: Ravindra Love MD Was code activated?: No Autopsy requested?: No workers compensation examiner notified?: Yes Organ bank notified?: Yes Advance directives: No Hospice patient?: No Discharge Sum: Diag - PCOD Probable Cause of : Cardiac arrest Discharge Sum: Prov - Provider [facility] care physician: [facility] Admitting clinician: Ravindra Love Consults: 09/17/17 18:07 Consult to Cardiology [CONS] Routine Comment: Consulting Provider: Hans Coppola Reason for Consult: cardiogenic shock Time Notified: 18:07 Call Completed: Yes Pronouncing clinician: Lisa Grimm
== END 2017-09-18 04:19 | disposition expired | DRG 291 ==
LOC: EMEROO 12:54 → ICNU 15:33
PROVIDERS: ADMIT Emergency Medicine; ATTEND Internal Medicine Pulmonary Disease